=== PATIENT | female | born 1940 | race Caucasian/White ===

== ENCOUNTER 2016-08-20 12:52 | Emergency (ER) | payer MEDICARE ==
[~2016-08-20] VITALS: Ht 165.1 cm; Wt 87.7 kg
[~2016-08-20 12:52] MED LIST: AMBIEN 5MG TABLE5 MG PO; CARDIZEM CD 18180 MG PO; DIOVAN320 MG PO; GLUCOPHAGE500 MG/TAB PO; K-TAB20; LANTUS SOLOS100 U/ML SC; LASIX 40MG TABL40 MG PO; PRAVACHOL10 MG PO
[2016-08-20 12:53] VITALS: TEMP 99.5
[2016-08-20] MEDS ORDERED: LANTUS100 U/ML SQ (13:23)
[2016-08-20] MEDS ORDERED: COZAAR 25MG25 MG/TAB PO (13:24)
[2016-08-20 14:15] LABS: BASO # 0.1 (0.0-0.2); BASO % 0.5 % (0.0-2.0); EOS # 0.1 (0.0-0.7); EOS % 0.8 % (0-4.0); GRAN # 10.5 (1.4-6.5); GRAN % 72.4 % (42.2-75.2); LYMPH # 2.7 (1.2-3.4); LYMPH % 18.7 % (20.0-51.0); MEAN CELL VOLUME 101 fl (80.0-100.0); MEAN CORPUSCULAR HGB CONC 32 g/dl (33.0-37.0); MEAN PLATELET VOLUME 10.5 fl (7.4-10.4); MONO % 6.9 % (1.7-9.3); PLATELET COUNT 268 K/mm3 (130-400); RED BLOOD COUNT 3.14 M/mm3 (4.10-5.30); REDCELL DISTRIBUTION WIDTH-CV 13.3 % (11.5-14.5); WHITE BLOOD COUNT 14.4 K/mm3 (4.8-10.8)
[2016-08-20 14:16] LABS: HEMATOCRIT 31.7 % (37.0-47.0); HEMOGLOBIN 10.2 g/dl (12.5-16.0); MEAN CORPUSCULAR HEMOGLOBIN 32 pg (27.0-31.0)
[2016-08-20 14:21] LABS: INR 1.1 (0.8-3.0); PARTIAL THROMBOPLASTIN TIME 29.9 SECONDS (26.0-37.0); PROTHROMBIN TIME 12.4 SECONDS (9.7-12.8)
[2016-08-20 14:27] LABS: ADJUSTED CALCIUM 9.8 mg/dL (8.4-10.2); ALANINE AMINOTRANSFERASE 35 U/L (9-52); ALBUMIN 4.1 gm/dL (3.5-5.0); ALKALINE PHOSPHATASE 82 U/L (50-136); ANION GAP 12 mmol/L (7-16); BILIRUBIN,TOTAL 1.2 mg/dL (0.0-1.0); BLOOD UREA NITROGEN 16 mg/dL (7-17); C-REACTIVE PROTEIN 5.3 mg/dL (0.0-0.9); CALCIUM 9.9 mg/dL (8.4-10.2); CARBON DIOXIDE 26 mmol/L (22-30); CHLORIDE 98 mmol/L (98-107); CREATININE, serum 0.94 mg/dL (0.52-1.25); GLUCOSE 209 mg/dL (74-106); LIPASE 72 U/L (23-300); POTASSIUM 4.2 mmol/L (3.4-5.0); SODIUM 136 mmol/L (137-145); TOTAL PROTEIN 7.2 gm/dL (6.4-8.2)
[2016-08-20 14:36] LABS: TROPONIN-I < 0.012 ng/mL (0.000-0.034)
[2016-08-20 14:51] LABS: PH 5 (5-8); SQUAMOUS EPITHELIAL 0-2 /hpf; URINE APPEARANCE Hazy; URINE BACTERIA Many /hpf; URINE BILIRUBIN Negative (NEGATIVE); URINE BLOOD Negative (NEGATIVE); URINE COLOR Yellow; URINE GLUCOSE 2+ (NEGATIVE); URINE KETONE Negative (NEGATIVE); URINE UROBILINOGEN Negative (NEGATIVE)
[2016-08-20] MEDS ORDERED: FLAGYL500 MG PO (15:57)
[2016-08-20] MEDS ORDERED: CIPRO 500MG TA500 MG PO (15:57)
[2016-08-20] MEDS ORDERED: ZOFRAN 4MG T4 MG/TAB PO (15:57)
[2016-08-20] MEDS ORDERED: NORCO 325 MG-51 TAB PO (15:57)
[2016-08-20 16:20] VITALS: BP 142/90; PULSE 90
== END 2016-08-20 16:20 | disposition home or self-care (01) ==
LOC: COL.ER 12:52
PROVIDERS: Emergency Medicine
DX: K57.32 Diverticulitis of large intestine without perforation or abscess without bleeding (principal); E11.9 Type 2 diabetes mellitus without complications; I10 Essential (primary) hypertension; Z79.84 Long term (current) use of oral hypoglycemic drugs
CPT/HCPCS: J7030; Q9967

== ENCOUNTER 2018-09-01 12:40 | Emergency (ER) | payer MEDICARE ==
[~2018-09-01] VITALS: Ht 165.1 cm; Wt 81.8 kg
[~2018-09-01 12:40] MED LIST changes: +CIPRO 500MG TA500 MG PO; +COZAAR 25MG25 MG/TAB PO; +FLAGYL500 MG PO; +LANTUS100 U/ML SQ; +NORCO 325 MG-51 TAB PO; +ZOFRAN 4MG T4 MG/TAB PO
[2018-09-01 12:45] VITALS: TEMP 98
[2018-09-01] MEDS ORDERED: DOXYCYCLINE 10100 MG PO ×2 (13:02→13:32)
[2018-09-01] MEDS ORDERED: PREDNISONE20 MG PO (13:32)
[2018-09-01 14:14] VITALS: BP 160/84; PULSE 87
== END 2018-09-01 14:16 | disposition home or self-care (01) ==
LOC: COL.ER 12:40
DX: J20.9 Acute bronchitis, unspecified (principal); I10 Essential (primary) hypertension; E11.9 Type 2 diabetes mellitus without complications; Z95.9 Presence of cardiac and vascular implant and graft, unspecified; Z79.4 Long term (current) use of insulin

== ENCOUNTER → 2020-10-17 | Outpatient (CLI) | payer MEDICARE ==
[~2020-10-17] MED LIST changes: +ASPI325T6 PO; +B-121000 MCG PO; +BLUE-EMU LIDOC1 EACH TP; +COLCRYS0.6 MG PO; +DOXYCYCLINE 10100 MG PO; +DUO-KAPS1 CAP PO; +FERROUS SU325 MG/TAB PO; +FLEXERIL 1010 MG/TAB PO; +FOLIC ACID 11 MG/TA1 PO; +GLUMETZA1000 MG PO; +INDOCIN 25MG CA25 MG; +INDOCIN 25MG CA25 MG PO; +ONE-A-DAY ESSE1 EACH PO; +OSCAL 500 TAB500 MG PO; +PREDNISONE10 MG PO; +PREDNISONE20 MG PO; +RESTORIL30 MG PO; +ROXICODONE 55 MG/TAB PO; +SEPTRA DS 8001 TAB PO; +TOPROL XL 25MG25 MG PO; +TYLENOL 325MG325 MG PO; +VALIUM 5MG T5 MG/TAB PO; +VITAMIN C500 MG PO; +VOLTAREN GEL 1%1 TU TP; +ZYLOPRIM 100MG100 MG PO
== END ==
LOC: COL.RAD 15:33
DX: M43.8X4 Other specified deforming dorsopathies, thoracic region (principal); R06.02 Shortness of breath; M54.2 Cervicalgia

== ENCOUNTER 2020-10-20 03:22 | Inpatient (IN) | payer MEDICARE ==
[2020-10-20] VITALS (12 sets, daily range): BP systolic 110–161; BP diastolic 62–98; PULSE 83–107; TEMP 97.8–98.6
[~2020-10-20] VITALS: Ht 165.1 cm; Wt 82.7 kg
[~2020-10-20 03:22] MED LIST changes: -ASPI325T6 PO; -B-121000 MCG PO; -BLUE-EMU LIDOC1 EACH TP; -COLCRYS0.6 MG PO; -DUO-KAPS1 CAP PO; -FERROUS SU325 MG/TAB PO; -FLEXERIL 1010 MG/TAB PO; -FOLIC ACID 11 MG/TA1 PO; -GLUMETZA1000 MG PO; -INDOCIN 25MG CA25 MG; -INDOCIN 25MG CA25 MG PO; -ONE-A-DAY ESSE1 EACH PO; -OSCAL 500 TAB500 MG PO; -PREDNISONE10 MG PO; -RESTORIL30 MG PO; -ROXICODONE 55 MG/TAB PO; -SEPTRA DS 8001 TAB PO; -TOPROL XL 25MG25 MG PO; -TYLENOL 325MG325 MG PO; -VALIUM 5MG T5 MG/TAB PO; -VITAMIN C500 MG PO; -VOLTAREN GEL 1%1 TU TP; -ZYLOPRIM 100MG100 MG PO
[2020-10-20 04:04] LABS: MEAN CELL VOLUME 109 fl (80.0-100.0); MEAN CORPUSCULAR HGB CONC 31 g/dl (33.0-37.0); MEAN PLATELET VOLUME 9.1 fl (7.4-10.4); PLATELET COUNT 359 K/mm3 (130-400); RED BLOOD COUNT 2.95 M/mm3 (4.10-5.30); REDCELL DISTRIBUTION WIDTH-CV 13.7 % (11.5-14.5)
[2020-10-20 04:07] LABS: HEMATOCRIT 32.2 % (37.0-47.0); HEMOGLOBIN 9.9 g/dl (12.5-16.0); MEAN CORPUSCULAR HEMOGLOBIN 34 pg (27.0-31.0)
[2020-10-20 04:14] LABS: ALANINE AMINOTRANSFERASE 16 U/L (4-34); ALBUMIN 3.6 gm/dL (3.5-5.0); ALKALINE PHOSPHATASE 100 U/L (50-136); ANION GAP 13 mmol/L (7-16); AST,SGOT 24 U/L (15-37); BILIRUBIN,TOTAL 0.4 mg/dL (0.0-1.0); BLOOD UREA NITROGEN 31 mg/dL (7-17); CALCIUM 9.2 mg/dL (8.4-10.2); CARBON DIOXIDE 26 mmol/L (22-30); CHLORIDE 101 mmol/L (98-107); CREATININE, serum 1.51 (0.52-1.25); GLUCOSE 89 mg/dL (74-106); POTASSIUM 3.7 mmol/L (3.4-5.0); SODIUM 140 mmol/L (137-145); TOTAL PROTEIN 6.8 gm/dL (6.4-8.2)
[2020-10-20 04:20] LABS: EOSINOPHIL 4 % (0-4); HYPOCHROMIA 3+; LYMPHOCYTE 21 % (20.0-51.0); NEUTROPHILS 69 % (42.0-75.2); PLATELET ESTIMATE NORMAL (NORMAL)
[2020-10-20 04:26] LABS: TROPONIN-I < 0.012 ng/mL (0.000-0.035)
--- NOTE | 2020-10-20 07:20 | NUR ---
ORTHO PA ROUNDING, IF PATIENT CLEARED SURGERY WILL BE SCHEDULED FOR LATER TODAY. SEE ORDERS.
--- NOTE | 2020-10-20 08:00 | NUR ---
PATIENT IS A&O. VSS. C/O PAIN IN RLE. GAVE PRN IV MORPHINE PER ORDERS. RIGHT HIP FX SURGERICAL REPAIR PENDING HOSPITALIST CLEARANCE. SURGERY WILL POSSIBLY HAPPEN LATER TODAY. NPO. AM BS IS 76. IV FLUIDS ORDERED AND ARE BEING HUNG BY STUDENT NURSE. SEE STUDENT CHARTING. CONSENT ON CHART AND OBTAINED BY ORTHO P.A. EARLY THIS AM. RLE IS STRAIGHT, NOT SHORTENED OR EXTERNALLY ROTATED. TEDS TO LLE. SCD'S TO BLE. POSITIVE PEDAL PLUSES. LUNA TO DD WITH MOD AMOUNTS OF CLEAR YELLOW URINE NOTED. HEAD TO TOE ASSESSMENT COMPLETE. CALL LIGHT IN REACH. NO OTHER NEEDS AT THIS TIME.
--- NOTE | 2020-10-20 08:30 | NUR ---
CONTACTED PCP FOR BASELINE CREATININE & HGB. AWAITING FAX
[2020-10-20 08:34] LABS: PROTHROMBIN TIME 11.7 SECONDS (9.7-12.8)
[2020-10-20 08:47] LABS: PRE ALBUMIN 15.7 mg/dL (17.6-36.0)
--- NOTE | 2020-10-20 09:50 | NUR ---
HOSPITALIST TEAM ROUNDING, SEE ORDERS.
[2020-10-20 10:02] LABS: COLLECTION METHOD CLEAN CATCH
[2020-10-20 10:35] LABS: AMORPHOUS CRYSTAL Present /uL; MUCOUS Present /lpf; PH 5 (5-8); SQUAMOUS EPITHELIAL None Seen /hpf; URINE APPEARANCE Hazy; URINE BACTERIA Occasional /hpf; URINE BILIRUBIN Negative (NEGATIVE); URINE BLOOD Negative (NEGATIVE); URINE COLOR Yellow; URINE GLUCOSE Negative (NEGATIVE); URINE KETONE Negative (NEGATIVE); URINE LEUKOCYTE ESTERASE Negative (NEGATIVE); URINE NITRATE Positive (NEGATIVE); URINE PROTEIN(semi-quant) 1+ (NEGATIVE); URINE RBC 0-2 /hpf; URINE UROBILINOGEN Negative (NEGATIVE)
--- NOTE | 2020-10-20 11:05 | NUR ---
Initial visit; Patient thanked Customer Contact Representative for looking in on her and offering God's blessings and keeping her in her prayers.
--- NOTE | 2020-10-20 13:50 | NUR ---
AT BEDSIDE. PATIENT SCHEDULED TO GO DOWN TO THE OR AROUND 1530 TODAY.
--- NOTE | 2020-10-20 14:21 | NUR ---
Route Salesman And Driver attended clinical rounds with the team. Patient to have hip surgery, possibly this afternoon. SW met with patient and patient's , Lionel (ph#[phone]) to discuss discharge planning. Patient lives in [place] in a condo with her Lionel and daughter Leatha. Patient sees Dr. Farfan for primary care. Patient states she does use any DME but has a walker at home. Lionel states that patient should be using the walker, but doesn't. Patient advised that she has had some difficulty getting in and out of her bathtub and Lionel added that patient has had trouble getting up from the couch. Patient states they plan to have their bathroom remodeled to be more accomodating. Patient advised she has DPOA-HC and her daughter will bring it by later. SW then reviewed discharge plan with patient. SW advised that based on patient's diagnosis and surgery, it is likely she will need rehab before returning home. Patient advised she lives on one level and has family support, but also verbalized understanding that rehab may be recommended. Patient was open to having referrals sent for rehab. SW reviewed options including [facility] and local SNFs. Patient's preferences are 1) [facility] and 2) [facility]. SW contacted both facilities and faxed referrals. Discharge Plan: Referrals sent to SNF. Awaiting PT/OT eval.
--- NOTE | 2020-10-20 14:50 | NUR ---
NOTED PATIENT'S PRE-OP BS AT 64. NPO FOR SURGERY TODAY. NOTIFIED HOSPITALIST, SEE ORDERS.
--- NOTE | 2020-10-20 15:23 | NUR ---
Patient's brought in copy of DPOA-HC and copy was placed on patient's chart.
--- NOTE | 2020-10-20 15:40 | NUR ---
PATIENT GOING DOWN TO OR VIA BED. CONSENT ON CHART. IV FLUIDS WITH D5W PIGGYBACKED VIA GRAVITY. PATIENT OFF FLOOR.
--- NOTE | 2020-10-20 19:15 | NUR ---
Pt. returned from PACU. Pt. is A&OX3, assessment complete. IV to lt. hand patent, IV fluids infusing per orders. Dressing to rt. hip CDI. Pt. reports pain at a 2 on pain scale at this time. Pt. denies further needs, call light within reach.
[2020-10-21] VITALS (7 sets, daily range): BP systolic 102–150; BP diastolic 59–85; PULSE 91–99; TEMP 98–98.9
[2020-10-21 07:16] LABS: BASO % 0.3 % (0.0-2.0); GRAN # 7.5 (1.4-6.5); GRAN % 84.5 % (42.2-75.2); LYMPH # 0.9 (1.2-3.4); LYMPH % 10.4 % (20.0-51.0); MEAN CELL VOLUME 109 fl (80.0-100.0); MEAN CORPUSCULAR HGB CONC 31 g/dl (33.0-37.0); MEAN PLATELET VOLUME 9.8 fl (7.4-10.4); MONO # 0.4 (0.1-0.6); MONO % 3.9 % (1.7-9.3); PLATELET COUNT 269 K/mm3 (130-400); RED BLOOD COUNT 2.19 M/mm3 (4.10-5.30); REDCELL DISTRIBUTION WIDTH-CV 13.8 % (11.5-14.5)
[2020-10-21 07:29] LABS: CALCIUM 8.2 mg/dL (8.4-10.2); CREATININE, serum 1.26 (0.52-1.25); POTASSIUM 4.8 mmol/L (3.4-5.0)
[2020-10-21 07:34] LABS: HEMATOCRIT 23.9 % (37.0-47.0); HEMOGLOBIN 7.5 g/dl (12.5-16.0); MEAN CORPUSCULAR HEMOGLOBIN 34 pg (27.0-31.0)
--- NOTE | 2020-10-21 08:00 | NUR ---
PATIENT IS A&O. VSS. C/O PAIN IN RLE. GAVE PRN NORCO, TWO TABS PER ORDERS. RIGHT HIP DRESSING IS CD&I WITH ICE PACK INPLACE. TEDS & SCD'S TO BLE. POSITIVE PEDAL PULSES TO BLE. LUNA TO DD WITH MOD AMOUNTS OF CLEAR YELLOW URINE NOTED. IV FLUIDS INFUSING INTO LEFT HAND IV VIA PUMP. STUDENT NURSE WORKING WITH PATIENT TODAY, SEE STUDENT CHARTING. PT/OT CONSULTED. HEAD TO TOE ASSESSMENT COMPLETE. CALL LIGHT IN REACH. NO OTHER NEEDS AT THIS TIME.
[2020-10-21] MEDS ORDERED: VITAMIN C500 MG PO (09:52)
[2020-10-21] MEDS ORDERED: RESTORIL30 MG PO (10:02)
[2020-10-21] MEDS ORDERED: FLEXERIL 1010 MG/TAB PO (10:02)
--- NOTE | 2020-10-21 15:13 | NUR ---
General Road Production Manager faxed clinical updates to [facility]. Imani from [facility] advised that they can accept referral. SW reviewed patient's PT note which advised patient would be a good candidate for Inpatient Rehab. SW followed up with patient to review [facility] as another post acute rehab option. Patient is interested in IPR so SW contacted Pilar, [facility] Director to give referral. NURA also advised patient that [facility] can accept. Pilar advised they may be able to accept over the weekend and that patient was going to talk about her options with her .
--- NOTE | 2020-10-21 15:50 | NUR ---
Pilar, [facility] Director has submitted for authorization. SW also faxed in information to [facility] for SNF authorization as a second preference.
[2020-10-21 18:05] LABS: HEMATOCRIT 23.7 % (37.0-47.0); HEMOGLOBIN 7.2 g/dl (12.5-16.0)
--- NOTE | 2020-10-21 20:10 | NUR ---
PT IN BED. IS ALERT AND ORIENTED X3. HAS SL TO LEFT HAND, NO REDNESS OR SWELLING. TAKES HS MEDS AT THIS TIME. HAS BULKY DRSG TO LEFT HIP. PLACED SCDS ON FOR THE NIGHT. LUNA WITH YELLOW URINE.
--- NOTE | 2020-10-21 22:19 | NUR ---
MEDICATED WITH NORCO 2 TABS PO AT THIS TIME.
[2020-10-22 04:07] VITALS: BP 144/72; PULSE 90; TEMP 98
--- NOTE | 2020-10-22 06:22 | NUR ---
DR TYLER IN TO SEE PT. CHANGES RT HIP DRSG TO AN AQUACEL. TAKES NORCO 2 TABS PO AT THIS TIME FOR PAIN TO RIGHT HIP AND RIBS.
[2020-10-22 07:27] LABS: BASO % 0.4 % (0.0-2.0); EOS # 0.3 (0.0-0.7); EOS % 3.4 % (0-4.0); GRAN # 5.8 (1.4-6.5); LYMPH # 1.8 (1.2-3.4); MEAN CORPUSCULAR HGB CONC 30 g/dl (33.0-37.0); MEAN PLATELET VOLUME 9.6 fl (7.4-10.4); MONO # 0.5 (0.1-0.6); MONO % 6.4 % (1.7-9.3); PLATELET COUNT 253 K/mm3 (130-400); RED BLOOD COUNT 2.05 M/mm3 (4.10-5.30)
[2020-10-22 07:28] LABS: HEMATOCRIT 23.3 % (37.0-47.0); MEAN CELL VOLUME 114 fl (80.0-100.0); MEAN CORPUSCULAR HEMOGLOBIN 34 pg (27.0-31.0)
[2020-10-22 07:31] LABS: CALCIUM 8.3 mg/dL (8.4-10.2); CREATININE, serum 1.36 (0.52-1.25); POTASSIUM 3.9 mmol/L (3.4-5.0)
--- NOTE | 2020-10-22 08:00 | NUR ---
Patient in bed resting. Alert and oriented x 3. Assessment complete. States mild pain to ribs. Aquacell to right hip is CDI. Rocky hose and SCDs to BLE. Denies further needs at this time.
[2020-10-22 08:58] VITALS: BP 139/58; PULSE 72; TEMP 99.6
--- NOTE | 2020-10-22 09:30 | NUR ---
Coffey discontinued per orders, patient tolerated well, pericare provided.
[2020-10-22] MEDS ORDERED: TOPROL XL 25MG25 MG PO (09:34)
--- NOTE | 2020-10-22 11:25 | NUR ---
Patient called out states she is having 8/10 generalized pain, medications given per orders.
[2020-10-22 13:04] VITALS: BP 161/67; PULSE 97; TEMP 98.1
--- NOTE | 2020-10-22 13:43 | NUR ---
Patient back to bed with x 2 assist and walker.
[2020-10-22 15:22] VITALS: BP 151/72; PULSE 94; TEMP 98.5
[2020-10-22 16:03] LABS: HEMATOCRIT 22.9 % (37.0-47.0)
--- NOTE | 2020-10-22 17:16 | NUR ---
Notified Stacie MONTOYA, patient up to comode, unable to void. Bladder scanned at 200 ml. Will recheck, patient denies feeling the need to void.
--- NOTE | 2020-10-22 19:00 | NUR ---
Patient doing well throughout the day, reported off to rubber and pounder
--- NOTE | 2020-10-22 20:11 | NUR ---
MEDICATED WITH NORCO 2 TABS PO FOR RIB/CHEST DISCOMFORT. IS ALERT AND ORIENTED X4. HAS NOT VOIDED SINCE CATHETER REMOVED THIS AM.
[2020-10-22 20:46] VITALS: BP 161/73; PULSE 94; TEMP 98.2
--- NOTE | 2020-10-22 21:00 | NUR ---
ASSISTED TO BSC WITH 2, GAIT BELT AND WALKER. ABLE TO URINATE 150CC AT THIS TIME. BACK TO BED WITH MODERATE ASSIST. HAS SL TO LEFT HAND. REMOVED LIDODERM PATCH FROM RT RIB CAGE. WEARING OXYGEN AT 2L/OXYMASK, DYSPNEA WITH EXERTION. HS MEDS GIVEN.
[2020-10-22 23:54] VITALS: BP 142/62; PULSE 95; TEMP 99.1
--- NOTE | 2020-10-23 03:14 | NUR ---
PT USING BSC WITH 2 ASSIST, VOIDING WITHOUT PROBLEM.
[2020-10-23 04:21] VITALS: BP 136/71; PULSE 84; TEMP 98.6
--- NOTE | 2020-10-23 06:03 | NUR ---
NORCO 5/325MG 2 TABS PO GIVEN FOR RT RIB PAIN.
[2020-10-23 07:18] LABS: BASO % 0.4 % (0.0-2.0); EOS # 0.4 (0.0-0.7); EOS % 4.3 % (0-4.0); LYMPH % 21.4 % (20.0-51.0); MEAN CORPUSCULAR HGB CONC 32 g/dl (33.0-37.0); MEAN PLATELET VOLUME 9.7 fl (7.4-10.4); MONO # 0.6 (0.1-0.6); MONO % 6.8 % (1.7-9.3); PLATELET COUNT 246 K/mm3 (130-400); RED BLOOD COUNT 2.14 M/mm3 (4.10-5.30); REDCELL DISTRIBUTION WIDTH-CV 13.8 % (11.5-14.5)
[2020-10-23 07:25] LABS: HEMOGLOBIN 7.3 g/dl (12.5-16.0); MEAN CELL VOLUME 108 fl (80.0-100.0); MEAN CORPUSCULAR HEMOGLOBIN 34 pg (27.0-31.0)
[2020-10-23 07:31] LABS: CALCIUM 8.8 mg/dL (8.4-10.2); CREATININE, serum 1.28 (0.52-1.25); POTASSIUM 4.5 mmol/L (3.4-5.0)
[2020-10-23 07:42] VITALS: BP 152/81; PULSE 88; TEMP 97.8
--- NOTE | 2020-10-23 08:50 | NUR ---
Pt sitting up in the chair. Therapy helped her. She had pain medication prior to gettin up. Stated the pain was up to a 5/10 with transfer. Pt reports she has more right sided rib pain than she does hip pain. She has had breakfast. Lidocain patch applied to right ribs. Pt denies any needs, will continue to monitor
[2020-10-23 12:30] VITALS: BP 143/81; PULSE 95; TEMP 97.6
--- NOTE | 2020-10-23 14:43 | NUR ---
Pt back up sitting in the chair. She sat up most of the morning, got back to bed and is now back up in the chair. Having rib pain more than her right hip. PRN pain medication given for 02/14. No other needs, will continue to monitor
[2020-10-23 16:27] VITALS: BP 149/79; PULSE 95; TEMP 97.6
--- NOTE | 2020-10-23 19:17 | NUR ---
Pt continued to do well throughout the day. Mepilex dressing applied to right side of bottom during morning assessment. Bottom is not red, but there are 2 shiny areas about pea sized noted during morning assessment. Pain has been controlled with oral pain medication
[2020-10-23 19:58] VITALS: BP 171/90; PULSE 94; TEMP 97.6
--- NOTE | 2020-10-23 20:09 | NUR ---
ASSISTED TO BSC THEN BED WITH 1 ASSIST, GAIT BELT AND WALKER. TAKES HS MEDS INCLUDING OXYCODONE 10MG PO FOR RIB PAIN. HAS SL TO LEFT HAND, FLUSHED AT THIS TIME. ICE PACK PLACED TO RT HIP, AQUACEL DRSG INTACT. SCDS ON BILATERAL LOWER LEGS. HAS EDEMA TO BOTH LEGS. WEARING OXYGEN AT 2L/OXYMASK. REPORTS DYSPNEA WITH EXERTION, HAS NOT BEEN GETTING HER LASIX.
[2020-10-24] VITALS (11 sets, daily range): BP systolic 90–162; BP diastolic 51–88; PULSE 81–92; TEMP 97.7–98.6
[2020-10-24 07:48] LABS: CALCIUM 9.1 mg/dL (8.4-10.2); CREATININE, serum 1.54 (0.52-1.25); POTASSIUM 5.1 mmol/L (3.4-5.0)
[2020-10-24 07:50] LABS: BASO % 0.3 % (0.0-2.0); EOS # 0.5 (0.0-0.7); EOS % 5.5 % (0-4.0); GRAN # 6.1 (1.4-6.5); GRAN % 67.1 % (42.2-75.2); LYMPH # 1.8 (1.2-3.4); LYMPH % 19.5 % (20.0-51.0); MEAN CELL VOLUME 110 fl (80.0-100.0); MEAN CORPUSCULAR HGB CONC 31 g/dl (33.0-37.0); MEAN PLATELET VOLUME 9.8 fl (7.4-10.4); MONO # 0.6 (0.1-0.6); MONO % 6.6 % (1.7-9.3); PLATELET COUNT 250 K/mm3 (130-400); RED BLOOD COUNT 2.02 M/mm3 (4.10-5.30); REDCELL DISTRIBUTION WIDTH-CV 13.8 % (11.5-14.5)
[2020-10-24 08:09] LABS: HEMATOCRIT 22.2 % (37.0-47.0); HEMOGLOBIN 6.8 g/dl (12.5-16.0); MEAN CORPUSCULAR HEMOGLOBIN 34 pg (27.0-31.0)
--- NOTE | 2020-10-24 08:31 | NUR ---
Contacted hospitalist about H&H
--- NOTE | 2020-10-24 11:18 | NUR ---
Patient up to BSC with x 2 assist and walker. Denies further needs at this time.
--- NOTE | 2020-10-24 13:02 | NUR ---
First visit from the dental services director. No needs right now.
--- NOTE | 2020-10-24 14:00 | NUR ---
Patient to discharge to [place] [facility] today. SW contacted [facility] and canceled authorization request for SNF.
--- NOTE | 2020-10-24 14:13 | NUR ---
Educated patient on leaving oxygen on, use of IS and CDB.
--- NOTE | 2020-10-24 15:00 | NUR ---
Patient doing well today, up to recliner for breakfast and lunch. Aquacell to right hip is CDI. Abrasion to elbow with bandaid noted. Abrasion to buttock with foam dressing. Denies further needs at this time. Reported off to [facility].
[2020-10-24] MEDS ORDERED: SEPTRA DS 8001 TAB PO (15:13)
[2020-10-24] MEDS ORDERED: ROXICODONE 55 MG/TAB PO (15:14)
[2020-10-24] MEDS ORDERED: ASPI325T6 PO (15:14)
[2020-10-24] MEDS ORDERED: NORCO 325 MG-51 TAB PO (15:14)
[2020-10-24] MEDS ORDERED: TYLENOL 325MG325 MG PO (15:15)
[2020-10-24] MEDS ORDERED: OSCAL 500 TAB500 MG PO (15:15)
[2020-10-24] MEDS ORDERED: DUO-KAPS1 CAP PO (15:16)
[2020-10-24] MEDS ORDERED: BLUE-EMU LIDOC1 EACH TP (15:16)
[2020-10-24] MEDS ORDERED: B-121000 MCG PO (15:16)
--- NOTE | 2020-10-24 17:49 | NUR ---
Report received from [facility]. pT in bed resting, needs 20G IV started one to RFA after 3 attemtps. Pt received 1 unit of PRBCs after starting IV. REmained with pt for first 15 minutes of transfusion, pt denies any s/sx of a transfusion reaction. Tolerated well. Deneis needs. Will prep for discharge to [facility].
== END 2020-10-24 18:00 | DRG 521 ==
LOC: COL.ER 03:22 → SURG 04:47 → COL.ER 04:47 → SURG 10-24 17:40
PROVIDERS: Emergency Medicine; Orthopaedic Surgery; Orthopaedic Surgery Sports Medicine; Physician Assistant; ADMIT Student in an Organized Health Care Education/Training Program
PROC: 0SRR0J9 Replacement of Right Hip Joint, Femoral Surface with Synthetic Substitute, Cemented, Open Approach (ICD-10-PCS; principal; 2020-10-20 15:30)
DX: S72.031A Displaced midcervical fracture of right femur, initial encounter for closed fracture (principal); J96.01 Acute respiratory failure with hypoxia; S22.43XA Multiple fractures of ribs, bilateral, initial encounter for closed fracture; S22.069A Unspecified fracture of T7-T8 vertebra, initial encounter for closed fracture; N17.9 Acute kidney failure, unspecified; N39.0 Urinary tract infection, site not specified; E11.9 Type 2 diabetes mellitus without complications; I10 Essential (primary) hypertension; E78.5 Hyperlipidemia, unspecified; Z66 Do not resuscitate; N18.9 Chronic kidney disease, unspecified; D53.9 Nutritional anemia, unspecified; D72.829 Elevated white blood cell count, unspecified; I12.9 Hypertensive chronic kidney disease with stage 1 through stage 4 chronic kidney disease, or unspecified chronic kidney disease; Z20.822 Contact with and (suspected) exposure to COVID-19; Z79.4 Long term (current) use of insulin; Z87.891 Personal history of nicotine dependence; W19.XXXA Unspecified fall, initial encounter
CPT/HCPCS: OP; 99223-AI; 99232-AI; 99233-AI; 99239; A9284; C1776; J0690; J0696; J1100; J1815; J2270; J2405; J2704; J3010; J7030; J7070; J7120; P9016

== ENCOUNTER 2020-10-24 10:47 | Inpatient (IN) | payer MEDICARE ==
[~2020-10-24] VITALS: Ht 165.1 cm; Wt 77.9 kg
[~2020-10-24 10:47] MED LIST changes: +FLEXERIL 1010 MG/TAB PO; +RESTORIL30 MG PO; +TOPROL XL 25MG25 MG PO; +VITAMIN C500 MG PO
[2020-10-24] MEDS ORDERED: SEPTRA DS 8001 TAB PO (15:13)
[2020-10-24] MEDS ORDERED: ROXICODONE 55 MG/TAB PO (15:14)
[2020-10-24] MEDS ORDERED: ASPI325T6 PO (15:14)
[2020-10-24] MEDS ORDERED: NORCO 325 MG-51 TAB PO (15:14)
[2020-10-24] MEDS ORDERED: OSCAL 500 TAB500 MG PO (15:15)
[2020-10-24] MEDS ORDERED: TYLENOL 325MG325 MG PO (15:15)
[2020-10-24] MEDS ORDERED: BLUE-EMU LIDOC1 EACH TP (15:16)
[2020-10-24] MEDS ORDERED: DUO-KAPS1 CAP PO (15:16)
[2020-10-24] MEDS ORDERED: B-121000 MCG PO (15:16)
--- NOTE | 2020-10-24 19:19 | NUR ---
Report given to Chari, nightshift nurse who will resume care. pT brought to this room from surgical with all belongings. Daugther in room at bedside assisting with needs. Chari to resume care.
--- NOTE | 2020-10-24 21:57 | NUR ---
1999-ASSESSMENT COMPLETE. PT IS A NEW IRP ADMIT. ORDERS REVIEWED/POC DISCUSSED. PT RATING PAIN 3/10 W NO MOVEMENT TO RT HIP. 6/10 RIB PAIN ON BOTH SIDES. PM MEDS REVIEWED AND GIVEN. ICE WATER REFILL. CALL LIGHT W IN REACH. RT HIP AQUACELL C/D/I. UNPACKED ROOM AND GETTING SETTLE. DAUGHTER AT BEDSIDE HELPING. NO BM SINCE PRIOR TO SURGERY PER PT. COLACE GIVEN. ABD SOFT, W ACTIVE BOWEL SOUNDS. PASSING GAS. NEEDS MET.
--- NOTE | 2020-10-25 04:01 | NUR ---
Pt given incentive spirometer during hospitalization. Completing intervention.
[2020-10-25 04:42] VITALS: BP 101/53; PULSE 61; TEMP 98.4
--- NOTE | 2020-10-25 05:53 | NUR ---
RESTED THROUGH OUT THE NIGHT WITHOUT INCIDENT. NEEDS MET.
[2020-10-25 07:29] LABS: BASO % 0.5 % (0.0-2.0); EOS # 0.5 (0.0-0.7); EOS % 6.1 % (0-4.0); GRAN # 5.4 (1.4-6.5); GRAN % 66.9 % (42.2-75.2); LYMPH # 1.5 (1.2-3.4); LYMPH % 18.7 % (20.0-51.0); MEAN CORPUSCULAR HGB CONC 31 g/dl (33.0-37.0); MEAN PLATELET VOLUME 9.7 fl (7.4-10.4); MONO # 0.6 (0.1-0.6); MONO % 6.8 % (1.7-9.3); PLATELET COUNT 248 K/mm3 (130-400); RED BLOOD COUNT 2.38 M/mm3 (4.10-5.30); REDCELL DISTRIBUTION WIDTH-CV 17.2 % (11.5-14.5)
[2020-10-25 07:38] LABS: HEMATOCRIT 24.2 % (37.0-47.0); HEMOGLOBIN 7.5 g/dl (12.5-16.0); MEAN CELL VOLUME 102 fl (80.0-100.0); MEAN CORPUSCULAR HEMOGLOBIN 32 pg (27.0-31.0)
--- NOTE | 2020-10-25 09:39 | NUR ---
PT DENIED VIERA PRIOR TO GETTING OUT OF BED THIS AM. ESTEBAN 10 MG WAS GIVEN PRIOR TO THERAPY. PT NEEDED MOD A TO SIT ON SIDE OF BED THIS AM.
[2020-10-25 09:50] VITALS: BP 146/72
--- NOTE | 2020-10-25 13:48 | NUR ---
Plan to return home wih and home health supports. SW met with patient about her care. Patient reports that her Lionel is not support to care and sergio DTR Leatha works director multimedia. Patient reports that she uses walker and has oxygen at night. Patient reports difficulty during the day breathing and while walking. Suggested RT assessment to nurse when patient is moving better. Patient shares that her pcp is Dr. James Sanchez and preferred RX obtained at [facility] without difficulty. Patient indicated that she was independent prior to falling. Patient did not have preference of home health agency. WIll need to sent home health referral closer to [place].
[2020-10-25 15:38] VITALS: BP 139/72; PULSE 82; TEMP 98.4
--- NOTE | 2020-10-25 18:20 | NUR ---
PT C/O 02/14 PAIN TO RT SIDE OF RIBS AND RT HIP. RECEIVED PRN ESTEBAN 10 MG WITH APAP TWICE TODAY. REFUSED ICE THERAPY TO HIP OR RIBS. S2 TO RT SIDE OF BUTTOCKS NOTED AND MEPILEX REPLACED. AQUACELL TO RT HIP IS CDI. PT CONCERNED ABOUT OXYGEN SATURATIONS BUT HAS MAINTAINED WELL ABOVE 90% DURING THERAPIES AND AMBULATION TODAY. PT EXHIBITS ANXIETY ABOUT MINOR DETAILS OF HER CARE, HAS BEEN REASSURED AND ENCOURAGED TO FOCUS ON MANAGING PAIN AND INCREASING MOBILITY.
--- NOTE | 2020-10-25 21:53 | NUR ---
2030- ALERT AND OX4 . UP TO COMMODE TO ATTEMPT BM. PASSING GAS. REPORTS PAIN TO RT HIP, DSG C/D/I. RECENT MEDICATED. PM MEDS GIVEN. MELITON HOSE OFF FOR THE NIGHT. SCD ON. CALL LIGHT WI REACH. BED IN LOW POSITION. POC DISCUSSED. NEEDS MET.
[2020-10-26 04:14] VITALS: BP 166/78; PULSE 84; TEMP 97.7
--- NOTE | 2020-10-26 05:30 | NUR ---
rested throughout the night without incident. needs met .
[2020-10-26 07:32] LABS: HEMATOCRIT 26.6 % (37.0-47.0); HEMOGLOBIN 8.1 g/dl (12.5-16.0)
--- NOTE | 2020-10-26 08:12 | NUR ---
Patient resting in bed, call light in reach and bed alarm set. Patient reports pain of 4/10 at rest, but with exercise it goes to 8/10. Patient given prn pain meds as well as pain patch for her right upper ribs. Will continue to monitor.
--- NOTE | 2020-10-26 14:08 | NUR ---
Weight calculated for patient 114 kg - 24.6 kg (wheelchair) = 89.4 kg.
[2020-10-26 15:40] VITALS: BP 142/67; PULSE 80; TEMP 98.8
--- NOTE | 2020-10-26 16:34 | NUR ---
Change Lead met with patient and patient's to review and provide copy of team conference notes. Patient will be re-evaluated next week. NURA scheduled family meeting for 11/02/20 @1330.
--- NOTE | 2020-10-26 17:58 | NUR ---
Patient attended all therapies today. She ate only 10% of breakfast and 90% of lunch, but refused her supper. Her brought in a milk shake for her supper and she only wanted to eat her chocolate ice cream. Patient currently resting in bed, call light in reach and bed alarm set. Will continue to monitor.
--- NOTE | 2020-10-26 18:03 | NUR ---
Area to patient's left buttocks looks like it might be an excoriation, but it is open. This nurse applied xeroform to the open area and then secured it with a mepilex. Will continue to monitor.
--- NOTE | 2020-10-26 20:00 | NUR ---
PT RESTING IN BED. MOD 1 ASSIST TO BSC WITH WALKER. NEEDS ASSIST TO SITTING POSITION AND STANDING. NEEDS SAFETY CUES. PT WITH ANXIOUS AFFECT. HAD MED SF BROWN BM W/ VOID. PT REPORTS URGENCY & BURNING WITH VOID. PT TAKING SCHEDULED . RT RIB FX PAIN LEVEL 02/14. RT HIP PAIN 10/15. SEE MAR FOR PAIN MED GIVEN. PROVIDED KPAD FOR RT RIB AREA PAIN. ENC USE OF IS. REQUIRES TOILETING HYGIENE ASSIST. CALL LIGHT IN REACH. BED ALARM SET.
[2020-10-27 05:39] VITALS: BP 132/55; PULSE 64; TEMP 98
[2020-10-27 05:42] VITALS: BP 120/54; PULSE 79; TEMP 98.6
--- NOTE | 2020-10-27 06:59 | NUR ---
PT AWAKE. PROVIDED PAIN MED PRIOR TO ACTIVITY. DENIES NEED FOR TOIELT. CALL LIGHT IN REACH. BED ALARAM SET.
--- NOTE | 2020-10-27 08:05 | NUR ---
Patient resting in recliner eating breakfast at this time. Denies questions will continue to monitor.
--- NOTE | 2020-10-27 11:08 | NUR ---
Patient at Group Therapy at this time.
--- NOTE | 2020-10-27 13:23 | NUR ---
Admission QIM scores were reviewed by the team. Code of 5 chosen for eating was determined by team discussion to be the most usual performance for this patient during the assessment period. Code of 5 chosen for oral hygiene was determined by team discussion to be the most usual performance before interventions for this patient during the assessment period. Code of 1 chosen for toilet hygiene was determined by team discussion to be the most usual performance for this patient during the assessment period. Code of 88 chosen for toileting transfers was determined by team discussion to be the most usual performance for this patient during the assessment period. Code of 2 chosen for lower body dressing was determined by team discussion to be the most usual performance for this patient during the assessment period. Code of 1 chosen for putting on/taking off footwear was determined by team discussion to be the most usual performance for this patient during the assessment period. Code of 88 chosen for rolling left to right was determined by team discussion to be the most usual performance for this patient during the assessment period. Code of 2 chosen for sit to lying was determined by team discussion to be the most usual performance for this patient during the assessment period. Code of 2 chosen for lying to sitting on side of bed was determined by team discussion to be the most usual performance for this patient during the assessment period. Code of 3 for sit to stand was determined by team discussion to be the most usual performance for this patient during the assessment period. Code of 3 for chair/bed to chair transfers was determined by team discussion to be the most usual performance for this patient during the assessment period.--Pilar Garcia,
--- NOTE | 2020-10-27 13:33 | NUR ---
Patient was a two assist with putting on her karolyn hose today.
[2020-10-27 16:00] VITALS: BP 116/72; PULSE 78; TEMP 98.3
--- NOTE | 2020-10-27 19:00 | NUR ---
PT RESTING IN BED. STILL HAVING RT RIB PAIN. SEE MAR FOR FLEXARIL GIVEN. NO CHANGE IN LUNG SOUNDS. USING IS- NEEDED INSTRUCTION ON PROPER USE. ENC TCDB. MELITON HOSE ON BILAT. BED ALARM SET. CALL LIGHT IN REACH.
[2020-10-28 03:57] VITALS: BP 130/59; PULSE 99; TEMP 97.2
--- NOTE | 2020-10-28 13:44 | NUR ---
Comb Setter checked in with patient before the weekend. Patient states she is very tired and is hoping to get some rest this afternoon. Patient denies any questions or concerns at this time.
--- NOTE | 2020-10-28 14:30 | NUR ---
PT CALLED AUTO CAMP ATTENDANT LIGHT TO USE BATHROOM. THIS NURSE RESPONDED, AND THE BEDSIDE COMMODE WAS BROUGHT TO BEDSIDE B/C PT STATED SHE NEEDED TO GO BADLY AND IT WOULD TAKE TOO LONG TO WALK ALL THE WAY. PT SAT UP ON EDGE OF BED, GAIT BELT WAS FASTENED, WALKER WAS SET UP IN FRONT OF PT. PT NEEDED MOD A TO COME TO STANDING AND THEN WAS A 1 ASSIST WITH CUES TO PIVOT TO COMMODE. WHEN PT WAS DONE, SHE STOOD WITH WALKER AND GAIT BELT, PERFORMED ALL OWN HYGIENE AND CLOTHING MANAGEMENT. WE WERE PIVOT TRANSFERING TO PT'S RIGHT BACK TOWARDS BED. PT LOOKED LIKE SHE WAS GOING TO SIT DOWN AND WAS NOT CLOSE ENOUGH TO BED SO THIS NURSE TOLD PT NOT TO SIT YET, THAT SHE NEEDED TO MOVE CLOSER. PT BECAME UPSET AND TOLD THIS NURSE SHE KNEW THAT. PT ATTEMPTED TO PIVOT MORE BUT DID NOT MOVE MUCH AND THEN BEGAN TO SIT DOWN, THIS NURSE ATTEMPTED TO GET PT TO STAND BACK UP WITH GAIT BELT AND PT STATED SHE COULD NOT. THIS NURSE THEN ATTEMPTED TO PULL PT INTO BED MORE BUT COULD NOT. PT HAD RIGHT HAND ON BED AND NURSE HAD A HOLD OF GAIT BELT AND WE LOWERED HER TO THE GROUND. PT DENIED SCRAPPING OR HITTING ANYTHING ON THE WAY DOWN AND WAS GENTLY LOWERED. ASSISTANCE WAS CALLED, NUVIA LIFT WAS UTILIZED TO TRANSFER PT BACK INTO BED. VITALS WERE 139/69, 96, 20, 97% AT TIME OF FALL. PT DENIED ANY PAIN AFTER BACK IN BED, SKIN LOOKED OK. CASTRO MONTOYA WAS NOTIFIED AND IMMEDIATELY ASSESSED PT, CHARGE NURSE NOTIFIED, AND FAMILY NOTIFIED. PT HAS BEEN MODERATLY CONFUSED AND UNABLE TO FOLLOW DIRECTIONS, UNSURE HOW MUCH CONFUSION IS BASELINE AND HOW MUCH MAY BE DUE TO NARCOTICS. PT IS IN PAIN, FROM HIP FX AND FX RIBS SO BALANCING PAIN AND COGNITION IS CHALLENGING. CASTRO ORDERED MORE TOPICAL PAIN RELIEF AND WILL CONTINUE TO ENCOURAGE PT TO UTILIZE ICE OR HEAT THERAPY.
[2020-10-28 17:30] VITALS: BP 147/65; PULSE 85; TEMP 98.3
[2020-10-28 17:33] VITALS: BP 147/65
--- NOTE | 2020-10-28 19:12 | NUR ---
PT RECEIEVED LIDOCAINE PATCH TO LOWER BACK THIS EVENING. REPORTED PAIN 3/10 THE REST OF THE AFTERNOON AND NO MORE PRN PAIN MEDICATIONS GIVEN. PT NEEDED ASSISTANCE OF TWO TO GET OUT OF RECLINER THIS EVENING.
--- NOTE | 2020-10-28 19:28 | NUR ---
RECEIVED CHANGE OF SHIFT REPORT FROM DAY SHIFT NURSE.
[2020-10-29 05:49] VITALS: BP 120/58; PULSE 79; TEMP 98
--- NOTE | 2020-10-29 07:18 | NUR ---
CHANGE OF SHIFT REPORT GIVEN TO DAY SHIFT NURSE, EMILI ARECHIGA.
--- NOTE | 2020-10-29 07:32 | NUR ---
Patient resting in bed, call light in reach and bed alarm set.
--- NOTE | 2020-10-29 10:08 | NUR ---
Patient ate only 40% of her breakfast this morning. She is currently working with therapy.
--- NOTE | 2020-10-29 10:39 | NUR ---
Patient just now returning to her room with therapy.
--- NOTE | 2020-10-29 13:15 | NUR ---
Patient was a one CGA with ambulation from recliner to bed. This nurse needed to help patient with putting both legs in bed so was max assist. Patient tolerated meal well, reporting that she like the salad that was served today. Patient currently resting in bed, call light in reach and bed alarm set.
--- NOTE | 2020-10-29 15:18 | NUR ---
Patient was given colace this morning and she drank prune juice. She was worried about having another hard stool. Patient just had an incontinent semi-loose brown BM through pants and underwear. Patient was cleaned up and placed clean disposable brief on and replaced pants. Patient had her thigh high teds removed per new orders for provider. Thigh High teds were discontinued and she was started on knee high compressions socks. Patient tolerating well. Will continue to monitor.
[2020-10-29 15:36] VITALS: BP 131/55; PULSE 82; TEMP 98
[2020-10-30 05:20] VITALS: BP 135/64; PULSE 88; TEMP 97.9
--- NOTE | 2020-10-30 06:14 | NUR ---
PATIENT SLEPT WELL THROUGHOUT THE NIGHT. NO NEW ISSUES NOTED OR REPORTED BY PATIENT.
--- NOTE | 2020-10-30 07:33 | NUR ---
Patient resting in recliner, call light in reach and alarm set. Will continue to monitor.
--- NOTE | 2020-10-30 12:20 | NUR ---
Patient resting in recliner, call light in reach and alarm set. Patient reported still having right rib pain, so pain ointment was applied as well as [place]. Will continue to monitor. Patient currently eating her lunch.
[2020-10-30 16:17] VITALS: BP 152/68; PULSE 82; TEMP 98.5
--- NOTE | 2020-10-30 19:31 | NUR ---
RECEIVED CHANGE OF SHIFT REPORT FROM DAY SHIFT NURSE.
--- NOTE | 2020-10-30 20:00 | NUR ---
DECREASED STRENGTH TO RLE DUE TO RECENT HIP SURGERY. DENIES CHEST PAIN/SOA AT THIS TIME. DENIES NUMBNESS/TINGLING TO EXTREMITIES. BED ALARM ON WHEN IN BED.
--- NOTE | 2020-10-30 20:14 | NUR ---
This afternoon patient began walking with 1 person Touch assist to the bathroom. Patient was tolerating her pain very well in the morning, but this late afternoon patient began having more right hip pain. It was 5/10 and was given prn Flexeril and prn norco. Patient was upset this afternoon when she was placing her food order for tomorrow and she didn't get to place her order to be delivered at 12:30 pm as she had wanted. This nurse clarified why it was important that she have her lunch meal delivered at 12:00 instead of 12:30 as it would affect her ability to have enough time to eat before her afternoon therapies. Patient had felt she was never told about this before and then was mad at nursing staff, because they should have made her aware of this. This nurse did visit with patient for some time to see if all could be resolved. She did finally relax and is currently in bed, call light in reach and bed alarm set. Reported off to night nurse.
--- NOTE | 2020-10-31 02:00 | NUR ---
PATIENT SLEEPING. DOES NOT WAKE WHEN STAFF ENTERS ROOM AT THIS TIME.
[2020-10-31 05:14] VITALS: BP 140/61; PULSE 86; TEMP 98.2
[2020-10-31 06:16] LABS: BASO % 0.4 % (0.0-2.0); EOS # 0.4 (0.0-0.7); EOS % 5.2 % (0-4.0); GRAN # 5.2 (1.4-6.5); GRAN % 64.6 % (42.2-75.2); LYMPH # 1.8 (1.2-3.4); MEAN CELL VOLUME 104 fl (80.0-100.0); MEAN CORPUSCULAR HGB CONC 31 g/dl (33.0-37.0); MEAN PLATELET VOLUME 9.6 fl (7.4-10.4); MONO # 0.5 (0.1-0.6); MONO % 5.9 % (1.7-9.3); PLATELET COUNT 346 K/mm3 (130-400); RED BLOOD COUNT 2.34 M/mm3 (4.10-5.30); REDCELL DISTRIBUTION WIDTH-CV 15.6 % (11.5-14.5)
[2020-10-31 06:19] LABS: HEMATOCRIT 24.4 % (37.0-47.0); HEMOGLOBIN 7.5 g/dl (12.5-16.0); MEAN CORPUSCULAR HEMOGLOBIN 32 pg (27.0-31.0)
[2020-10-31 06:30] LABS: CALCIUM 8.4 mg/dL (8.4-10.2); CREATININE, serum 1.73 (0.52-1.25); MAGNESIUM 1.8 mg/dL (1.6-2.3); POTASSIUM 4.1 mmol/L (3.4-5.0)
--- NOTE | 2020-10-31 07:05 | NUR ---
CHANGE OF SHIFT REPORT GIVEN TO DAY SHIFT NURSE, BRANDT ARECHIGA AND CAPSTONE STUDENT.
--- NOTE | 2020-10-31 08:00 | NUR ---
PATIENT ALERT AND ORIENTED X3. VSS. NO COMPLAINTS OF N/V AT THIS TIME. PATIENT DOES COMPLAIN OF PAIN IN HER RIBS, 1 PRN NORCO TAB GIVEN PRIOR TO THERAPY SESSIONS. MORNING MEDS PASSED, PATIENT REFUSES MIRALAX. HEAD TO TOE ASSESSMENT COMPLETED. LUNG SOUNDS ARE CLEAR IN ALL LOBES. HEART SOUNDS ARE REGULAR AND NORMAL. BOWEL SOUNDS ARE ACTIVE IN ALL FOUR QUADRANTS AND THE ABDOMEN IS SOFT. PATIENT DENIES ANY PAIN OR TENDERNESS IN HER CALVES. THERE IS NO REDNESS OR ABNORMAL WARMTH IN THE LOWER EXTREMITIES. THERE IS SOME MILD EDEMA IN THE ANKLES AND FEET WITH +2 PITTING NOTED. PULSES ARE STILL PALPABLE. INCISION SITE TO THE RIGHT HIP IS OPEN TO AIR AND EDGES ARE WELL APPROXIMATED. PATIENT IN BED EATING BREAKFAST, DENIES ANY FURTHER NEEDS AT THIS TIME. BED LEFT IN THE LOWEST POSITION WITH CALL LIGHT LEFT IN REACH.
--- NOTE | 2020-10-31 09:45 | NUR ---
ROUNDING, SEE ORDERS.
[2020-10-31 15:55] VITALS: BP 150/66; PULSE 90; TEMP 97.7
--- NOTE | 2020-10-31 19:00 | NUR ---
Received report from [place]. Patient sitting in the recliner, talking on the phone.
--- NOTE | 2020-10-31 21:20 | NUR ---
Assesment done. Patient back to bed. She reports pain of 3/10. SCD placed on BLE. Call light within reach.
--- NOTE | 2020-11-01 01:45 | NUR ---
Patient called complaining of pain with pain score of 7/10. [place] given.
[2020-11-01 05:51] VITALS: BP 140/68; PULSE 92; TEMP 97.9
--- NOTE | 2020-11-01 05:55 | NUR ---
Patient denies pain at this time. No other needs noted. [place] given once last night.
--- NOTE | 2020-11-01 09:08 | NUR ---
PT DENIED PAIN THIS AM, UTILIZED GRABBER TO PLACE OWN UNDERWEAR AND PANTS ON WHILE SEATED AT THE TOILET, DID NEED CUEING ON PROPER TECHNIQUE. PT GIVEN PRN NORCO 1 TAB THIS AM, LIDOCAINE PATCH TO BACK AND RT RIBS WELL VOLTAREN GEL TO BOTH AREAS WELL.
--- NOTE | 2020-11-01 14:11 | NUR ---
Pantograph Ii Engraver met with the patient to follow up. The patient has a family meeting tomorrow 11/02 at 1330. The patient's and daughter will be present.
[2020-11-01 16:30] VITALS: BP 141/63; PULSE 86; TEMP 97.5
--- NOTE | 2020-11-01 17:23 | NUR ---
PT HAS C/O PAIN 7/10 AT [facility] AND RECEIVED PRN NORCO ONCE THIS SHIFT. PT AMBULATING TO BATHROOM SLOWLY, BUT DOING WELL. NO OTHER COMPLAINTS
--- NOTE | 2020-11-01 23:29 | NUR ---
Patient sitting up in the chair upon enter the room. Shift assessment completed. Patient denies any pain or discomfort at this time. Denies SOB/dyspnea or N/V. All scheduled meds given per SEP. Assisted patient to the bathroom to void. Changed to personal gown. SCDs on to BLE. Call light within reach. Patient denies further needs at this time.
[2020-11-02 04:36] VITALS: BP 143/64; PULSE 88; TEMP 97.9
[2020-11-02 07:23] LABS: MEAN CELL VOLUME 102 fl (80.0-100.0); MEAN CORPUSCULAR HGB CONC 31 g/dl (33.0-37.0); MEAN PLATELET VOLUME 9.2 fl (7.4-10.4); PLATELET COUNT 338 K/mm3 (130-400); RED BLOOD COUNT 2.45 M/mm3 (4.10-5.30); REDCELL DISTRIBUTION WIDTH-CV 15.4 % (11.5-14.5)
[2020-11-02 07:30] LABS: HEMATOCRIT 24.9 % (37.0-47.0); HEMOGLOBIN 7.7 g/dl (12.5-16.0); MEAN CORPUSCULAR HEMOGLOBIN 31 pg (27.0-31.0)
[2020-11-02 07:48] LABS: CALCIUM 8.6 mg/dL (8.4-10.2); CREATININE, serum 1.49 (0.52-1.25); MAGNESIUM 1.7 mg/dL (1.6-2.3); POTASSIUM 4.6 mmol/L (3.4-5.0)
--- NOTE | 2020-11-02 08:48 | NUR ---
Patient resting in recliner, call light in reach and bed alarm set. Patient denies any questions at this time.
--- NOTE | 2020-11-02 09:48 | NUR ---
Patient working with ST at this time. Given prn Newton prior to OT visit at 10 am.
[2020-11-02 10:01] LABS: BAND 3 % (0-10); EOSINOPHIL 5 % (0-4); LYMPHOCYTE 25 % (20.0-51.0); METAMYELOCYTE 1 % (0-0); NEUTROPHILS 61 % (42.0-75.2); PLATELET ESTIMATE NORMAL (NORMAL)
[2020-11-02 10:03] LABS: HYPOCHROMIA 3+
--- NOTE | 2020-11-02 14:04 | NUR ---
Roller Man attended a family meeting for the patient. Those present were the patient's daughter Leatha, and patient's Lionel Pilar IPR Director, PT/OT/ST staff and respective students. Pilar began the meeting by discussing it's purpose. PT/OT/ST staff discussed the patient's progress. The patient's tentative discharge date is set for , November 10. The team is recommending home health services. The family and patient were in agreeance. After the meeting, SW presented [email or web address]'s list of home health agencies to patient, Lionel Zhang. They will review the list then inform SW of decision.
[2020-11-02 15:58] VITALS: BP 147/76; PULSE 95; TEMP 97.9
--- NOTE | 2020-11-02 16:21 | NUR ---
Ladies Locker Room Attendant met with the patient to present the Team Conference Note. The patient had no questions at this time.
--- NOTE | 2020-11-02 19:43 | NUR ---
Patient attended all therapies today. She reported more pain this afternoon to her right hip and was given prn Fowler with some effect. This nurse also applied Voltoran to patient's hip this evening. She was also given ice for right hip comfort. Patient resting in bed, call light in reach and bed alarm set. Reported off to night nurse.
--- NOTE | 2020-11-02 20:00 | NUR ---
DENIES CHEST PAIN/SOA AT THIS TIME. DENIES NUMBNESS/TINGLING TO EXTREMITIES AT THIS TIME. ICE PACK TO RIGHT HIP CONTINUES NEEDED. BED ALARM ON WHEN IN BED.
--- NOTE | 2020-11-02 21:07 | NUR ---
RECEIVED CHANGE OF SHIFT REPORT FROM DAY SHIFT NURSE.
--- NOTE | 2020-11-03 01:30 | NUR ---
PATIENT SLEEPING, DOES NOT WAKE WHEN ROOM ENTERED BY STAFF. BREATHING NONLABORED AND EVEN. BED ALARM ON.
[2020-11-03 05:23] VITALS: BP 125/70; PULSE 83; TEMP 97.3
--- NOTE | 2020-11-03 06:54 | NUR ---
CHANGE OF SHIFT REPORT GIVEN TO DAY SHIFT NURSE, EMILI ARECHIGA.
--- NOTE | 2020-11-03 09:23 | NUR ---
Patient working with PT at this time.
[2020-11-03 17:05] VITALS: BP 164/73; PULSE 92; TEMP 97.6
--- NOTE | 2020-11-03 18:30 | NUR ---
Patient attended all therapies this shift. She reported pain 6/10 this morning and was given Voltoran to help with rib pain and hip pain along with Corinth. Patient's accuchecks were changed from ACHS to One time daily see new orders. Patient's diet was changed from ADA to Regular diet per Dr. Smith. Patient's bottom is healing well. Will continue to monitor. Patient's stopped by and OT reviewed with him and the patient regarding bathroom set up recommendations for when she returns home. Reported off to night nurse.
--- NOTE | 2020-11-03 19:30 | NUR ---
RECEIVED CHANGE OF SHIFT REPORT FROM DAY SHIFT NURSE. BED ALARM ON WHEN IN BED.
--- NOTE | 2020-11-03 20:00 | NUR ---
DENIES CHEST PAIN/SOA AT THIS TIME. DENIES NUMBNESS/TINGLING TO EXTREMITIES. [id number] HAS SORE MUSCLES FROM THERAPIES PERFORMED TODAY. SEE MAR FOR PAIN MEDS GIVEN. BED ALARM ON WHEN IN BED.
--- NOTE | 2020-11-03 22:25 | NUR ---
STATES FELT PAIN TO RIGHT HIP AREA BUT REFUSED OFFER OF PAIN MEDS WHEN NEXT AVAILABLE, STATES SHE WILL LET STAFF KNOW IF SHE NEEDS A PAIN MED
[2020-11-04 04:40] VITALS: BP 130/68; PULSE 71; TEMP 97.2
--- NOTE | 2020-11-04 06:55 | NUR ---
CHANGE OF SHIFT REPORT GIVEN TO DAY SHIFT NURSE, MADINA ARECHIGA.
--- NOTE | 2020-11-04 09:57 | NUR ---
PT REPORTS ARTHRITIC PAIN THIS AM AND FEELING STIFF. LIDOCAINE PATCH TO LOWER BACK AND RT RIBS WELL VOLTAREN GEL TO BOTH LOCATIONS, PRN NORCO 1 TAB GIVEN PRIOR TO THERAPY.
--- NOTE | 2020-11-04 16:00 | NUR ---
Market Development Trainer met with the patient and the patient's daughter, Leatha to follow up before the weekend. There are no questions or concerns at this time. The patient and Leatha decided on a home health agency, [facility].
[2020-11-04 16:29] VITALS: BP 139/59; PULSE 88; TEMP 98.2
--- NOTE | 2020-11-04 20:00 | NUR ---
JUST RETURNED FROM [facility] W/WALKER. SLOW GUARDED GAIT STEADY. NO RESP DISTRESS. VOIDING W/O S/S UTI. MELITON BENJAMIN TAKEN OFF. SCD'S ON BILAT. CALL LIGHT IN REACH BED ALARM SET.
[2020-11-05 05:33] VITALS: BP 150/71; PULSE 86; TEMP 97.6
--- NOTE | 2020-11-05 05:55 | NUR ---
PT AWAKE. NO NEEDS AT THIS TIME.
--- NOTE | 2020-11-05 08:00 | NUR ---
PATIENT IS A&O. VSS. PATIENT REPORTS DISCOMFORT IN BACK & RLE RATED AT 2-3 ON PAIN SCALE AND DENIES NEED FOR PAIN MEDS AT THIS TIME. RIGHT HIP INCISION IS WELL APPROXIMATED AND DONG. PATIENT IS A 1 ASSIST WITH WALKER. PT/OT CONSULTED. NOTED +1 BLE EDEMA. POSITIVE PEDAL PULSES. PATIENT EAT/DRINK/VOIDING SUFFICENT AMOUNTS. NO C/O N/V. AM BS WAS 108, NO SSI REQUIRED. BREAKFAST TRAY AT BEDSIDE. HEAD TO TOE ASSESSMENT COMPLETE. CALL LIGHT IN REACH. BED ALARM ON.
[2020-11-05 17:15] VITALS: BP 176/84; PULSE 92; TEMP 97.8
[2020-11-05 18:35] VITALS: BP 159/82
[2020-11-06 06:13] VITALS: BP 159/76; PULSE 89; TEMP 97.6
--- NOTE | 2020-11-06 08:00 | NUR ---
PATIENT IS A&O. VSS. PATIENT REPORTS NO DISCOMFORT IN BACK & RLE RATED AT THIS TIME AND DENIES NEED FOR PAIN MEDS AT THIS TIME. RIGHT HIP INCISION IS WELL APPROXIMATED AND FRONT DESK MONITOR. PATIENT IS A 1 ASSIST WITH WALKER. PT/OT CONSULTED. NOTED +1 BLE EDEMA. POSITIVE PEDAL PULSES. PATIENT EAT/DRINK/VOIDING SUFFICENT AMOUNTS. NO C/O N/V. AM BS WAS 98, NO SSI REQUIRED. BREAKFAST TRAY AT BEDSIDE. HEAD TO TOE ASSESSMENT COMPLETE. CALL LIGHT IN REACH. BED ALARM ON.
--- NOTE | 2020-11-06 14:15 | NUR ---
REPORTED OFF TO HAWK KLEIN WHO IS TAKING OVER PATIENT CARE.
[2020-11-06 16:52] VITALS: BP 153/74; PULSE 89; TEMP 98.1
--- NOTE | 2020-11-06 16:58 | NUR ---
PATIENT RESTING IN BED EATING MCALISTERS. PATIENT REPORTS THAT HER LOW BACK PAIN IS ACHY IN NATURE AND IS RATING IT A 2/10 ON A 0-10 SCALE. CALL LIGHT IN REACH. BED ALARM ON. PATIENT DENIES ADDITIONAL NEEDS AT THIS TIME.
--- NOTE | 2020-11-06 18:31 | NUR ---
PATIENT RESTING IN BED WATCHING TV. CALL LIGHT IN REACH. BED ALARM ON. WILL REPORT OFF TO ONCOMING NURSE.
[2020-11-07 05:44] VITALS: BP 149/75; PULSE 90; TEMP 98.1
[2020-11-07 07:33] LABS: BASO % 0.4 % (0.0-2.0); EOS # 0.3 (0.0-0.7); EOS % 3.5 % (0-4.0); GRAN # 6.6 (1.4-6.5); GRAN % 67.3 % (42.2-75.2); LYMPH # 2.2 (1.2-3.4); LYMPH % 22.2 % (20.0-51.0); MEAN CELL VOLUME 101 fl (80.0-100.0); MEAN CORPUSCULAR HGB CONC 31 g/dl (33.0-37.0); MEAN PLATELET VOLUME 8.9 fl (7.4-10.4); MONO # 0.5 (0.1-0.6); MONO % 5.3 % (1.7-9.3); PLATELET COUNT 393 K/mm3 (130-400); REDCELL DISTRIBUTION WIDTH-CV 15.4 % (11.5-14.5)
[2020-11-07 07:34] LABS: HEMATOCRIT 27.2 % (37.0-47.0); HEMOGLOBIN 8.4 g/dl (12.5-16.0); MEAN CORPUSCULAR HEMOGLOBIN 31 pg (27.0-31.0)
[2020-11-07 08:07] LABS: CALCIUM 8.9 mg/dL (8.4-10.2); CREATININE, serum 1.4 (0.52-1.25); MAGNESIUM 1.8 mg/dL (1.6-2.3); POTASSIUM 3.9 mmol/L (3.4-5.0)
--- NOTE | 2020-11-07 09:46 | NUR ---
PT DENIED PAIN WHILE SITTING ON EOB THIS AM. VOLTAREN GEL AND LIDOCAINE PATCHES TO LOWER BACK AND RT LOWER RIBS, WELL PRN NORCO GIVEN PRIOR TO THERAPY.
--- NOTE | 2020-11-07 13:34 | NUR ---
Art Sales Consultant faxed referral to Kourtney at [facility].
[2020-11-07 17:11] VITALS: BP 132/79; PULSE 97; TEMP 98.1
--- NOTE | 2020-11-07 18:47 | NUR ---
PT MADE MOD-I IN ROOM PER THERAPY TODAY, TOLERATING WELL, ENCOURAGED TO CALL FOR ANY NEEDS IF NECESSARY. TWO PRN NORCO'S GIVEN AND 1 PRN APAP THIS SHIFT.
--- NOTE | 2020-11-07 21:01 | NUR ---
ALERT AND OX3. HAS PAIN THIS EVEN TO RIBS/RT HIP BUT WANTS TO WAIT UNTIL 10P TO TAKE PAIN PILL. DENIES SOA UNLESS RELATED TO RIB PAIN WHEN BREATHING DEEP. PASSING GAS AND HAVING BM. UP INDEPENDENTLY W WALKER. AWAITING TO GIVE PM MEDS PER PT REQUEST WILL TAKE THEM ALL TOGETHER. POC DISCUSSED. NEEDS MET.
[2020-11-08 04:21] VITALS: BP 135/76; PULSE 66; TEMP 97.3
--- NOTE | 2020-11-08 05:05 | NUR ---
RESTED THROUGH THE NIGHT WITHOUT INCIDENT. NEEDS MET.
--- NOTE | 2020-11-08 08:24 | NUR ---
Patient independent in room, call light in reach and denies any questions at this time.
--- NOTE | 2020-11-08 10:19 | NUR ---
Initial visit; Patient thanked Live In Housekeeper for looking in on her and offering God's blessings.
--- NOTE | 2020-11-08 11:07 | NUR ---
Patient currently working with Group at this time.
--- NOTE | 2020-11-08 16:47 | NUR ---
Patient attended all therapies this shift. She reported some pain to her upper right ribs due to fracture and ointment was applied to that area. She also gets Lidocaine patches to help with pain. Patient is independent in her room and her and daughter have been by her side this afternoon. Patient's heating pad was not working properly so it was replaced this afternoon. Patient has been given prn tylenol to help with chronic back pain as well. Will continue to monitor.
[2020-11-08 17:49] VITALS: BP 146/66; PULSE 87; TEMP 97.8
--- NOTE | 2020-11-08 20:00 | NUR ---
PATIENT IS A&O. VSS. PATIENT REPORTS DISCOMFORT IN RIGHT SIDE/RIBS RATED AT 4-5 ON PAIN SCALE AND WAS GIVEN PRN NORCO, ONE TAB FOR PAIN WITH EVENING MEDS. RIGHT HIP INCISION IS WELL APPROXIMATED AND DONG. PATIENT IS INDEPENDENT IN ROOM WITH WALKER. PT/OT. PATIENT REPORTS SHE WILL GO HOME SATURDAY. NOTED +1 BLE EDEMA. POSITIVE PEDAL PULSES. PATIENT EAT/DRINK/VOIDING SUFFICENT AMOUNTS. NO C/O N/V. HEAD TO TOE ASSESSMENT COMPLETE. CALL LIGHT IN REACH.
[2020-11-09 05:55] VITALS: BP 162/78; PULSE 87; TEMP 97.3
--- NOTE | 2020-11-09 10:25 | NUR ---
Patient is independent in her room and working with speech therapy at this time.
[2020-11-09 14:48] VITALS: BP 137/69; PULSE 86; TEMP 97.7
--- NOTE | 2020-11-09 15:19 | NUR ---
Billing Collections Specialist met with the patient to present the Team Conference Note. The patient has no questions or concerns at this time.
[2020-11-09] MEDS ORDERED: FERROUS SU325 MG/TAB PO (15:21)
[2020-11-09] MEDS ORDERED: VOLTAREN GEL 1%1 TU TP (15:22)
[2020-11-09] MEDS ORDERED: BLUE-EMU LIDOC1 EACH TP (15:23)
[2020-11-09] MEDS ORDERED: FOLIC ACID 11 MG/TA1 PO (15:23)
[2020-11-09] MEDS ORDERED: NORCO 325 MG-51 TAB PO (15:24)
--- NOTE | 2020-11-09 19:03 | NUR ---
RECEIVED CHANGE OF SHIFT REPORT FROM DAY SHIFT NURSE. PATIENT UP IN ROOM AD KIAN WITH NO REPORTED CONCERNS OR PROBLEMS.
--- NOTE | 2020-11-09 19:09 | NUR ---
Patient attended all therapies today. She continues to be independent in her room with her walker. She tolerated diet well this shift. Patient had pain to her right upper ribs and was given prn Milo with good effect as well as voltoran ointment and Lidocain patches. Patient was able to be independent with all her cares today. She used her call light appropriatly this shift. Reported off to night nurse.
--- NOTE | 2020-11-09 20:00 | NUR ---
PATIENT UP IN ROOM AD KIAN WITH NO REPORTED PROBLEMS OR CONCERNS. EXPECTS TO BE DISCHARGE FROM [facility] TOMORROW.
[2020-11-10 04:23] VITALS: BP 148/74; PULSE 90; TEMP 98
--- NOTE | 2020-11-10 06:45 | NUR ---
CHANGE OF SHIFT REPORT GIVEN TO DAY SHIFT NURSEMADINA RN
--- NOTE | 2020-11-10 09:19 | NUR ---
PT REPORTS SOME MILD PAIN IN RIBS TODAY, UTILIZED LIDOCAINE AND VOLTAREN GEL. PT IS MOD-I IN ROOM AND DISCHARGING TODAY.
--- NOTE | 2020-11-10 10:06 | NUR ---
Follow-up; Flash Welding Machine Operator offered "Good morning" and God's blessings to April Wiggins who is always friendly and sweet.
--- NOTE | 2020-11-10 14:26 | NUR ---
PT GIVEN PRN NORCO AT 0915 THIS AM FOR RIB PAIN. WHILE CHECKING BOTTOM FOR SKIN INTEGRITY THIS AM, THIS NURSE NOTED EITHER SMEARING OR INADEQUATE CLEAN UP AFTER BM. MIN ASSISTANCE TO WIPE AWAY LEFT OVER. PT HEALTH SUMMARY, DISCHARGE SUMMARY, AND HOME MEDS PRINTED AND REVIEWED WITH PT AND , AND DAUGTHER CALLED SEPERATELY. STRESSED IMPORTANCE OF F/U APPTS. REVIEWED MEDICATIONS, PROVIDED ESCRIPTS FOR NORCO AND LIDOCAINE PATCHES. BELONGINGS GATHERED BY PT AND . PT TRANSPORTED VIA WC BY NURSE AND SEATBELTED FOR RIDE HOME. PT AND RELATION DENIED QUESTIONS.
--- NOTE | 2020-11-10 14:41 | NUR ---
The patient discharged home today, 11/10 with [facility]. SW faxed discharge orders. There are no additional needs at this time.
== END 2020-11-10 12:00 | disposition home health service (06) | DRG 559 ==
PROVIDERS: ADMIT Internal Medicine
DX: S72.001D Fracture of unspecified part of neck of right femur, subsequent encounter for closed fracture with routine healing (principal); J96.01 Acute respiratory failure with hypoxia; N17.9 Acute kidney failure, unspecified; N39.0 Urinary tract infection, site not specified; D62 Acute posthemorrhagic anemia; E11.22 Type 2 diabetes mellitus with diabetic chronic kidney disease; I12.9 Hypertensive chronic kidney disease with stage 1 through stage 4 chronic kidney disease, or unspecified chronic kidney disease; N18.30 Chronic kidney disease, stage 3 unspecified; D63.1 Anemia in chronic kidney disease; Z66 Do not resuscitate; G31.84 Mild cognitive impairment of uncertain or unknown etiology; S22.069D Unspecified fracture of T7-T8 vertebra, subsequent encounter for fracture with routine healing; S22.43XD Multiple fractures of ribs, bilateral, subsequent encounter for fracture with routine healing; I25.10 Atherosclerotic heart disease of native coronary artery without angina pectoris; B96.20 Unspecified Escherichia coli [E. coli] as the cause of diseases classified elsewhere; M19.90 Unspecified osteoarthritis, unspecified site; E66.9 Obesity, unspecified; E78.5 Hyperlipidemia, unspecified; K59.00 Constipation, unspecified; W19.XXXD Unspecified fall, subsequent encounter; Z79.891 Long term (current) use of opiate analgesic; Z79.82 Long term (current) use of aspirin; Z79.84 Long term (current) use of oral hypoglycemic drugs
CPT/HCPCS: 99222-AI; 99231-AI; 99232-AI; 99238; A9284

== ENCOUNTER → 2021-01-23 | Outpatient (CLI) | payer MEDICARE ==
[~2021-01-23] MED LIST changes: +ASPI325T6 PO; +B-121000 MCG PO; +BLUE-EMU LIDOC1 EACH TP; +COLCRYS0.6 MG PO; +DUO-KAPS1 CAP PO; +FERROUS SU325 MG/TAB PO; +FOLIC ACID 11 MG/TA1 PO; +GLUMETZA1000 MG PO; +INDOCIN 25MG CA25 MG; +INDOCIN 25MG CA25 MG PO; +ONE-A-DAY ESSE1 EACH PO; +OSCAL 500 TAB500 MG PO; +PREDNISONE10 MG PO; +ROXICODONE 55 MG/TAB PO; +SEPTRA DS 8001 TAB PO; +TYLENOL 325MG325 MG PO; +VALIUM 5MG T5 MG/TAB PO; +VOLTAREN GEL 1%1 TU TP; +ZYLOPRIM 100MG100 MG PO
== END ==
LOC: ZCOL.LAB 11:38
DX: D64.9 Anemia, unspecified (principal)

== ENCOUNTER → 2021-01-24 | Outpatient (CLI) | payer MEDICARE ==
[2021-01-24 11:41] LABS: HEMATOCRIT 29.7 % (37.0-47.0); MEAN CELL VOLUME 104 fl (80.0-100.0); MEAN CORPUSCULAR HEMOGLOBIN 31 pg (27.0-31.0); MEAN CORPUSCULAR HGB CONC 30 g/dl (33.0-37.0); MEAN PLATELET VOLUME 9.2 fl (7.4-10.4); PLATELET COUNT 416 K/mm3 (130-400); RED BLOOD COUNT 2.86 M/mm3 (4.10-5.30)
== END ==
LOC: COL.LAB 11:18
PROVIDERS: Internal Medicine
DX: D64.9 Anemia, unspecified (principal)

== ENCOUNTER 2021-03-01 08:27 | Day surgery (SDC) | payer MEDICARE ==
[~2021-03-01] VITALS: Ht 165.1 cm; Wt 76.8 kg
[~2021-03-01 08:27] MED LIST changes: -COLCRYS0.6 MG PO; -GLUMETZA1000 MG PO; -INDOCIN 25MG CA25 MG; -INDOCIN 25MG CA25 MG PO; -ONE-A-DAY ESSE1 EACH PO; -PREDNISONE10 MG PO; -VALIUM 5MG T5 MG/TAB PO; -ZYLOPRIM 100MG100 MG PO
[2021-03-01 09:19] VITALS: BP 134/84; PULSE 90; TEMP 97.6
[2021-03-01] MEDS ORDERED: VALIUM 5MG T5 MG/TAB PO (09:29)
[2021-03-01 11:50] VITALS: BP 127/62; PULSE 83; TEMP 98.4
[2021-03-01 12:05] VITALS: BP 130/75; PULSE 81
[2021-03-01 12:40] VITALS: BP 137/79; PULSE 79; TEMP 98.1
[2021-03-01 12:43] LABS: HEMATOCRIT 26.1 % (37.0-47.0); HEMOGLOBIN 8.1 g/dl (12.5-16.0)
--- NOTE | 2021-03-01 14:14 | NUR ---
1150: PATIENT ARRIVED BACK FROM PROCEDURE. WANTED APPLE JUICE AND SALTINES. DR. CHEW REQUESTING AN H&H BE DRAWN. LAB NOTIFIED. VITAL SIGNS STABLE. 1205: VITALLY STABLE. TOLERATED FOOD AND DRINK. 1220: PATIENT VOIDED. LAB ARRIVED TO DRAW BLOOD. 1240: LABS DRAWN. PATIENT GOT DRESSED. LABS RESULTED AND COMMUNICATED TO DR. CHEW. PT TO FOLLOW UP WITH NAINA AND OFFICE WILL CALL TO GET APPOINTMENT SCHEDULED. 1300: PATIENT WENT TO REST ROOM 1320: PATIENT ESCORTED OUT VIA WHEELCHAIR. PICKED UP PATIENT.
== END 2021-03-01 13:20 ==
LOC: SDCO 08:27
PROVIDERS: Internal Medicine Gastroenterology
DX: K29.50 Unspecified chronic gastritis without bleeding (principal); K57.30 Diverticulosis of large intestine without perforation or abscess without bleeding; K63.89 Other specified diseases of intestine; I12.9 Hypertensive chronic kidney disease with stage 1 through stage 4 chronic kidney disease, or unspecified chronic kidney disease; E11.22 Type 2 diabetes mellitus with diabetic chronic kidney disease; N18.30 Chronic kidney disease, stage 3 unspecified; M19.90 Unspecified osteoarthritis, unspecified site; E78.5 Hyperlipidemia, unspecified; D51.9 Vitamin B12 deficiency anemia, unspecified; Z79.899 Other long term (current) drug therapy; Z79.84 Long term (current) use of oral hypoglycemic drugs
CPT/HCPCS: J2704

== ENCOUNTER 2021-03-10 02:03 | Observation (INO) | payer MEDICARE ==
[~2021-03-10] VITALS: Ht 165.1 cm; Wt 75.0 kg
[~2021-03-10 02:03] MED LIST changes: +VALIUM 5MG T5 MG/TAB PO
[2021-03-10 03:07] LABS: BASO % 0.5 % (0.0-2.0); EOS # 0.1 (0.0-0.7); EOS % 0.9 % (0-4.0); GRAN # 5.9 (1.4-6.5); GRAN % 74.2 % (42.2-75.2); LYMPH # 1.4 (1.2-3.4); LYMPH % 17.6 % (20.0-51.0); MEAN CELL VOLUME 101 fl (80.0-100.0); MEAN CORPUSCULAR HGB CONC 31 g/dl (33.0-37.0); MEAN PLATELET VOLUME 9.4 fl (7.4-10.4); MONO # 0.5 (0.1-0.6); MONO % 6.4 % (1.7-9.3); PLATELET COUNT 221 K/mm3 (130-400); RED BLOOD COUNT 2.92 M/mm3 (4.10-5.30); REDCELL DISTRIBUTION WIDTH-CV 16.7 % (11.5-14.5)
[2021-03-10 03:09] LABS: HEMATOCRIT 29.6 % (37.0-47.0); HEMOGLOBIN 9.2 g/dl (12.5-16.0); MEAN CORPUSCULAR HEMOGLOBIN 32 pg (27.0-31.0)
[2021-03-10 03:29] LABS: ALBUMIN 3.9 gm/dL (3.5-5.0); BILIRUBIN,TOTAL 0.5 mg/dL (0.0-1.0); CALCIUM 9.5 mg/dL (8.4-10.2); CREATININE, serum 1.66 (0.52-1.25); POTASSIUM 4.3 mmol/L (3.4-5.0); TOTAL PROTEIN 7.2 gm/dL (6.4-8.2); URIC ACID 9.5 mg/dL (2.5-6.2)
[2021-03-10 03:30] LABS: ERYTHROCYTE SEDIMENTATION RATE 65 mm/hr (0-30)
[2021-03-10 06:08] LABS: COLLECTION METHOD CLEAN CATCH
[2021-03-10 06:15] LABS: MUCOUS Present /lpf; PH 5 (5-8); SQUAMOUS EPITHELIAL 0-2 /hpf; URINE APPEARANCE Hazy; URINE BACTERIA Rare /hpf; URINE BILIRUBIN Negative (NEGATIVE); URINE BLOOD Negative (NEGATIVE); URINE COLOR Yellow; URINE GLUCOSE Negative (NEGATIVE); URINE KETONE Negative (NEGATIVE); URINE LEUKOCYTE ESTERASE Trace (NEGATIVE); URINE NITRATE Negative (NEGATIVE); URINE PROTEIN(semi-quant) Negative (NEGATIVE); URINE RBC 0-2 /hpf; URINE UROBILINOGEN Negative (NEGATIVE)
[2021-03-10] MEDS ORDERED: INDOCIN 25MG CA25 MG (06:18)
[2021-03-10] MEDS ORDERED: COLCRYS0.6 MG PO (06:19)
[2021-03-10] MEDS ORDERED: INDOCIN 25MG CA25 MG PO (07:05)
[2021-03-10] MEDS ORDERED: GLUMETZA1000 MG PO (07:10)
[2021-03-10] MEDS ORDERED: FERROUS SU325 MG/TAB PO (07:14)
[2021-03-10] MEDS ORDERED: ONE-A-DAY ESSE1 EACH PO (07:14)
[2021-03-10] MEDS ORDERED: B-121000 MCG PO (07:15)
[2021-03-10 09:50] VITALS: BP 130/58; PULSE 75; TEMP 97.7
[2021-03-10 11:41] VITALS: BP 137/69; PULSE 80; TEMP 98.7
--- NOTE | 2021-03-10 13:41 | NUR ---
SW met with the patient to discuss discharge plan. The patient lives in [place] with her , Lionel (c.ph#[phone]), and daughter, Leatha. She reports independence with ADLs and has a walker. She states that she receives outpatient PT at [facility] on [address]. The patient's PCP is Dr. James Farfan and she receives her medications from [facility]. She reports no difficulties obtaining her meds. The patient's DPOA-HC is in EMR and it designates her . The patient plans to return home with her family and resume outpatient PT at [facility] on [address] upon discharge. No additional needs at this time. *Discharge plan: home with family and outpatient PT*
[2021-03-10 15:40] VITALS: BP 129/64; PULSE 83; TEMP 98.5
[2021-03-10 20:23] VITALS: BP 133/67; PULSE 85; TEMP 98.5
--- NOTE | 2021-03-10 22:00 | NUR ---
Patient is resting in bed, alert and oriented. VSS, No nausea or vomiting. Complains of some pain in her left foot. Some edema present. Patient is able to go to the restroom and back to bed with the use of the walker. No major complains. Assessment completed and meds provided. No further needs at this time. Call light within reach.
[2021-03-11 00:27] VITALS: BP 122/59; PULSE 75; TEMP 97.7
[2021-03-11 04:21] VITALS: BP 117/75; PULSE 80; TEMP 97.6
--- NOTE | 2021-03-11 05:44 | NUR ---
Patient has been calm during the night. VSS. Some pain in her left foot but did not required medication. Continue monitoring. Shift report will be given to day nurse.
[2021-03-11 07:40] VITALS: BP 131/74; PULSE 82; TEMP 97.9
--- NOTE | 2021-03-11 07:55 | NUR ---
Shift assessment complete. Pt assisted to restroom SBA. A&Ox4. Heart RRR. Lungs CTA. No complaints this morning. Some mild redness and swelling to toes on left foot, denies pain in this foot at this time. Call light in reach. Continuing to monitor.
[2021-03-11] MEDS ORDERED: ZYLOPRIM 100MG100 MG PO (08:48)
[2021-03-11] MEDS ORDERED: PREDNISONE10 MG PO (08:50)
--- NOTE | 2021-03-11 11:00 | NUR ---
Discharge instructions discussed w/pt and all questions answered. IV to left AC removed w/tip intact. Pt escorted out to car via wheelchair w/all belongings, accompanied by .
== END 2021-03-11 11:00 | disposition home or self-care (01) ==
LOC: COL.ER 02:03 → MEDICAL 04:55 → EDBEDREQ 06:38 → MEDICAL 03-11 11:00
PROVIDERS: Emergency Medicine; ADMIT Student in an Organized Health Care Education/Training Program
DX: M10.9 Gout, unspecified (principal); M79.672 Pain in left foot; R53.81 Other malaise; I10 Essential (primary) hypertension; E78.5 Hyperlipidemia, unspecified; R53.1 Weakness; E11.9 Type 2 diabetes mellitus without complications; N18.9 Chronic kidney disease, unspecified; D53.9 Nutritional anemia, unspecified; G31.84 Mild cognitive impairment of uncertain or unknown etiology; J96.11 Chronic respiratory failure with hypoxia; E87.5 Hyperkalemia; Z79.899 Other long term (current) drug therapy; Z79.84 Long term (current) use of oral hypoglycemic drugs
CPT/HCPCS: G0378; J1644; J1815; J2543; J7512

== ENCOUNTER 2021-03-28 12:45 | Outpatient (RCR) | payer MEDICARE ==
[~2021-03-28 12:45] MED LIST changes: +COLCRYS0.6 MG PO; +GLUMETZA1000 MG PO; +INDOCIN 25MG CA25 MG; +INDOCIN 25MG CA25 MG PO; +ONE-A-DAY ESSE1 EACH PO; +PREDNISONE10 MG PO; +ZYLOPRIM 100MG100 MG PO
== END 2021-03-30 12:12 | disposition home or self-care (01) ==
LOC: WSPT
DX: S22.32XA Fracture of one rib, left side, initial encounter for closed fracture (principal); S22.31XA Fracture of one rib, right side, initial encounter for closed fracture; Z96.641 Presence of right artificial hip joint

== ENCOUNTER → 2021-07-03 | Outpatient (CLI) | payer MEDICARE ==
[2021-07-03 12:33] LABS: MEAN CELL VOLUME 100 fl (80.0-100.0); MEAN CORPUSCULAR HEMOGLOBIN 32 pg (27-31); MEAN CORPUSCULAR HGB CONC 32 g/dl (33.0-37.0); MEAN PLATELET VOLUME 9.4 fl (7.4-10.4); PLATELET COUNT 337 K/mm3 (130-400); REDCELL DISTRIBUTION WIDTH-CV 14.2 % (11.5-14.5)
== END ==
LOC: COL.LAB 12:03
DX: D64.9 Anemia, unspecified (principal)

== ENCOUNTER → 2021-09-01 | Outpatient (CLI) | payer MEDICARE | LOC: COL.RAD 10:02 | DX: H47.10 Unspecified papilledema (principal) ==

== ENCOUNTER 2021-10-29 10:26 | Emergency (ER) | payer MEDICARE ==
[~2021-10-29] VITALS: Ht 165.1 cm; Wt 72.7 kg
[2021-10-29 10:44] VITALS: TEMP 97.7
[2021-10-29] MEDS ORDERED: FLEXERIL 1010 MG/TAB PO (14:38)
[2021-10-29] MEDS ORDERED: IBU600 MG PO (14:38)
[2021-10-29 14:56] VITALS: BP 181/102; PULSE 81
[2021-11-19] MEDS ORDERED: MELATONIN5 M1 SL (16:24)
== END 2021-10-29 14:56 | disposition home or self-care (01) ==
LOC: COL.ER 10:26
DX: S39.012A Strain of muscle, fascia and tendon of lower back, initial encounter (principal); W01.0XXA Fall on same level from slipping, tripping and stumbling without subsequent striking against object, initial encounter

== ENCOUNTER 2021-11-13 04:03 | Inpatient (IN) | payer MEDICARE ==
[~2021-11-13] VITALS: Ht 162.6 cm; Wt 72.3 kg
[~2021-11-13 04:03] MED LIST changes: +IBU600 MG PO
[2021-11-13 04:47] LABS: BASO # 0.1 K/mm3 (0.0-0.2); BASO % 0.6 % (0.0-2.0); EOS # 0.6 K/mm3 (0.0-0.7); EOS % 4.2 % (0.0-4.0); GRAN # 7.2 K/mm3 (1.4-6.5); GRAN % 53.5 % (42.2-75.2); LYMPH # 4.6 K/mm3 (1.2-3.4); LYMPH % 34.5 % (20.0-51.0); MEAN CELL VOLUME 102 fl (80.0-100.0); MEAN CORPUSCULAR HGB CONC 32 g/dl (33.0-37.0); MEAN PLATELET VOLUME 9.8 fl (7.4-10.4); MONO # 0.9 K/mm3 (0.1-0.6); MONO % 6.7 % (1.7-9.3); PLATELET COUNT 469 K/mm3 (130-400); RED BLOOD COUNT 2.63 M/mm3 (4.10-5.30); REDCELL DISTRIBUTION WIDTH-CV 16.1 % (11.5-14.5)
[2021-11-13 04:48] LABS: HEMATOCRIT 26.7 % (37.0-47.0); HEMOGLOBIN 8.5 g/dl (12.5-16.0); MEAN CORPUSCULAR HEMOGLOBIN 32 pg (27-31)
[2021-11-13 05:05] LABS: ALBUMIN 3.2 gm/dL (3.4-4.8); BILIRUBIN,TOTAL 0.4 mg/dL (0.2-1.2); CALCIUM 10.2 mg/dL (8.4-10.2); CREATININE, serum 3.83 mg/dL (0.57-1.11); POTASSIUM 4.6 mmol/L (3.5-4.5); TOTAL PROTEIN 6.9 gm/dL (6.2-8.1)
[2021-11-13 06:01] LABS: COLLECTION METHOD IN
[2021-11-13 06:09] LABS: MUCOUS Present (NOT PRESENT); PH 5 (5-8); SQUAMOUS EPITHELIAL None Seen /hpf (0-10); URINE APPEARANCE Cloudy (CLEAR/HAZY); URINE BACTERIA Many /hpf (NONE SEEN); URINE BILIRUBIN Negative (NEGATIVE); URINE BLOOD 3+ (NEGATIVE); URINE COLOR Yellow (YELLOW); URINE GLUCOSE Negative (NEGATIVE); URINE KETONE Negative (NEGATIVE); URINE LEUKOCYTE ESTERASE 3+ (NEGATIVE); URINE NITRATE Negative (NEGATIVE); URINE PROTEIN(semi-quant) 1+ (NEGATIVE); URINE UROBILINOGEN Negative (NEGATIVE)
[2021-11-13] MEDS ORDERED: ZYLOPRIM 100MG100 MG PO (06:38)
[2021-11-13] MEDS ORDERED: ASPIRIN 81M81 MG/TA2 PO (06:41)
[2021-11-13] MEDS ORDERED: COZAAR100 MG PO (07:13)
--- NOTE | 2021-11-13 07:50 | NUR ---
arrived on unit per cart from ED, assisted off cart and into bed, she is alert and oriented, repositioned in bed for comfort
[2021-11-13 08:03] VITALS: BP 113/56; PULSE 80; TEMP 98.2
--- NOTE | 2021-11-13 08:10 | NUR ---
Stacie MONTOYA notified of patient's admission and the need for orders
--- NOTE | 2021-11-13 08:20 | NUR ---
RXM completed with patient, she appears to know what medications she takes but unsure if the last time taken was correct, she has not taken anything today
--- NOTE | 2021-11-13 08:57 | NUR ---
Dr Negro in to see patient, telemetry on
--- NOTE | 2021-11-13 09:10 | NUR ---
telemetry was verified with technical services coordinator, full admission assessment completed, see for further info
--- NOTE | 2021-11-13 10:15 | NUR ---
had breakfast and tolerated well, with warm wash cloth attempted to clean dried blood out of her hair, most of this has been completed but will try more later
--- NOTE | 2021-11-13 11:15 | NUR ---
in to visits, talks to this nurse about how his 's ability to care for herself and her memory have changed drastically in the last 2-3 weeks, encouraged him to talk with social staff worker about possible solutions after leaving hospital
[2021-11-13 11:44] VITALS: BP 122/63; PULSE 80; TEMP 97.5
--- NOTE | 2021-11-13 12:00 | NUR ---
offered lunch but declines since she had a late breakfast
--- NOTE | 2021-11-13 12:59 | NUR ---
appears to be sleeping, in bed with eyes closed, resp quiet and easy
--- NOTE | 2021-11-13 13:03 | NUR ---
NURA met with the patient and her , Lionel (ph#[phone]), to discuss discharge plan. The patient lives in [place] with her and their daughter, Leatha (ph#[phone]). Lionel states that the patient has been needing assistance with ADLs and that she has a walker. He states that the patient uses the walker, but also needs someone to assist her while walking. She does not have any home health services at this time. The patient's PCP is Dr. James Farfan and she receives her medications from [facility]. The patient's DPOA-HC is in EMR and it designates her . The alternate is her daughter, Leatha. Lionel informed NURA that she has been more confused and having more falls. She tends to get up at night, when they are sleeping. NURA discussed post-acute rehab upon discharge. Lionel is interested in SNF and would like NURA to go ahead and send referrals to the three local facilities. Referrals faxed to [facility], [facility], and [facility]. Awaiting screens. The patient has Medicare [employer] and will need auth for SNF. *Discharge plan: SNF*
--- NOTE | 2021-11-13 13:10 | NUR ---
awake now and requesting to have lunch, this was ordered for her
--- NOTE | 2021-11-13 13:45 | NUR ---
Nupur with [facility] cannot accept as they are not in network with [facility].
--- NOTE | 2021-11-13 13:54 | NUR ---
report given to HAWK Wynn
--- NOTE | 2021-11-13 14:25 | NUR ---
requesting ibuprofen for chronic low back pain, JAN De La Fuente notified
--- NOTE | 2021-11-13 14:42 | NUR ---
medicated with tylenol 650mg and lidocaine patch to low back for c/os pain,
[2021-11-13 17:11] VITALS: BP 126/58; PULSE 78; TEMP 98.2
--- NOTE | 2021-11-13 18:16 | NUR ---
Patient resting in bed, A&Ox3. VSS 1L NC O2, no reported SOB. IV CDI. Denies pain and discomfort. Bandon CDI. Coffey intact. Call light within reach. Bed alarm on
[2021-11-13 19:21] VITALS: BP 126/71; PULSE 79; TEMP 97.8
[2021-11-13 23:41] VITALS: BP 134/67; PULSE 89; TEMP 97.4
[2021-11-14] VITALS (12 sets, daily range): BP systolic 135–154; BP diastolic 61–81; PULSE 84–96; TEMP 97.6–98.4
--- NOTE | 2021-11-14 01:41 | NUR ---
PATIENT IN BED. ALERT AND ORIENTED. HS MEDS PER EMAR. REQUESTS SLEEPING PILLS, VALIUM AND RESTERIL ON HOLD PER ORDER FOR INCREASE FALL RISK. PATIENT VERBALIZED UNDERSTANDING. C/O MILD BACK PAIN, PRN TYLENOL GIVEN. L HEAD GHULAM INTACT. IV L WRIST WITH IVF. LUNA TO DD WITH CLOUDY YELLOW OUTPUT. AMBULATED WITH X1 ASSIST AND WALKER TO BATHROOM AND HAD LARGE FORMED BLACK STOOL. REMOVED FROM O2 AND SATS ARE STABLE ON ROOM AIR. DENIES ADDITIONAL NEEDS AT THIS TIME. CALL LIGHT IN REACH. RR EVEN AND UNLABORED.
[2021-11-14 07:14] LABS: CALCIUM 7.9 mg/dL (8.4-10.2); CREATININE, serum 3.06 mg/dL (0.57-1.11); POTASSIUM 3.9 mmol/L (3.5-4.5)
[2021-11-14 07:53] LABS: BASO % 0.5 % (0.0-2.0); EOS # 0.3 K/mm3 (0.0-0.7); EOS % 6.1 % (0.0-4.0); GRAN # 3.1 K/mm3 (1.4-6.5); LYMPH # 1.8 K/mm3 (1.2-3.4); LYMPH % 31.6 % (20.0-51.0); MEAN CELL VOLUME 104 fl (80.0-100.0); MEAN CORPUSCULAR HGB CONC 31 g/dl (33.0-37.0); MEAN PLATELET VOLUME 9.8 fl (7.4-10.4); MONO # 0.3 K/mm3 (0.1-0.6); MONO % 5.9 % (1.7-9.3); RED BLOOD COUNT 1.84 M/mm3 (4.10-5.30); REDCELL DISTRIBUTION WIDTH-CV 16.2 % (11.5-14.5)
[2021-11-14 07:57] LABS: HEMATOCRIT 19.1 % (37.0-47.0); MEAN CORPUSCULAR HEMOGLOBIN 32 pg (27-31)
[2021-11-14 07:59] LABS: HEMOGLOBIN 5.9 g/dl (12.5-16.0); PLATELET COUNT 248 K/mm3 (130-400)
[2021-11-14 08:46] LABS: RETIC # 0.09 M/mm3 (0.02-0.16); RETIC % 4.8 % (0.5-3.52)
--- NOTE | 2021-11-14 10:11 | NUR ---
Air Conditioning Engineer faxed updates to [facility] and [facility].
--- NOTE | 2021-11-14 14:04 | NUR ---
SW also faxed updates to [facility].
[2021-11-14 16:30] LABS: HEMATOCRIT 23.9 % (37.0-47.0); HEMOGLOBIN 7.6 g/dl (12.5-16.0)
--- NOTE | 2021-11-14 18:26 | NUR ---
Pt alert and oriented, resting in bed currently, but up to ambulate in room from bed to chair today. Reports chronic back pain. Administered prn tylenol x2 today and frequently repositioned. Shift assessment performed. Medications administered per orders and education provided. Pt recieved 1 unit of PRBC's today for a hgb of 5.9. Hgb increased to 7.6. Orders in for another Hgb check at 2200. No adverse rxns' and VS remained stable. VS currently stable ,BP runs elevated. Pt tolerating clear liquid diet. Coffey in place. Adequate output throughout day. No BM's today. Will notify rn night on orders for stool occult and c-diff tests. Pt reported not sleeping well last night, talked to provider and had prn melatonin ordered. Pt reports no questions at this time. No concerns, will continue to monitor.
--- NOTE | 2021-11-14 19:41 | NUR ---
RECEIVED CHANGE OF SHIFT REPORT FROM DAY SHIFT RN.
--- NOTE | 2021-11-14 22:00 | NUR ---
PATIENT REQUESTING TO HAVE LIDO PATCH PLACED ON AT HS, "MY PAIN IS WORSE AT NIGHT" AND HAVE LIDO PATCH TAKEN OFF IN AM.
[2021-11-14 22:19] LABS: HEMOGLOBIN 7.5 g/dl (12.5-16.0)
[2021-11-15 04:38] VITALS: BP 150/71; PULSE 83; TEMP 98.2
[2021-11-15 06:18] LABS: HEMOGLOBIN 7.7 g/dl (12.5-16.0); MEAN CELL VOLUME 105 fl (80.0-100.0); MEAN CORPUSCULAR HEMOGLOBIN 32 pg (27-31); MEAN CORPUSCULAR HGB CONC 31 g/dl (33.0-37.0); MEAN PLATELET VOLUME 9.7 fl (7.4-10.4); PLATELET COUNT 239 K/mm3 (130-400); RED BLOOD COUNT 2.39 M/mm3 (4.10-5.30); REDCELL DISTRIBUTION WIDTH-CV 17.9 % (11.5-14.5)
[2021-11-15 06:39] LABS: CALCIUM 8.1 mg/dL (8.4-10.2); CREATININE, serum 2.38 mg/dL (0.57-1.11); POTASSIUM 4.1 mmol/L (3.5-4.5)
--- NOTE | 2021-11-15 07:03 | NUR ---
Change of shift report given to day shift RNElisabeth.
[2021-11-15 07:31] LABS: EOSINOPHIL 2 % (0-4); LYMPHOCYTE 40 % (20.0-51.0); NEUTROPHILS 56 % (42.0-75.2)
[2021-11-15 07:32] LABS: OVALOCYTES 1+; SCHISTOCYTES 1+
[2021-11-15 07:34] VITALS: BP 159/81; PULSE 85; TEMP 97.6
--- NOTE | 2021-11-15 11:46 | NUR ---
The patient is agreeable to an EGD/colonscopy now. This may be done in a day or two. Juan Carlos, at [facility], reports that they will likely not have a bed available. Wu, at [facility], states that they can accept the patient; pending insurance auth. SW to update the patient's .
[2021-11-15 11:49] VITALS: BP 171/82; PULSE 91; TEMP 97.3
--- NOTE | 2021-11-15 11:51 | NUR ---
NURA updated the patient's , Lionel. Lionel is agreeable with the patient going to [facility] upon discharge.
--- NOTE | 2021-11-15 12:15 | NUR ---
Pt alert and oriented, resting in bed currently. Pt was up to walk with PT and had a shower with OT today. Pt reported significant back pain this afternoon that was not relieved by repositioning, a heating pad, or prn tylenol. Administered prn tramadol and will reassess pain. Shift assessment performed. Medications administered per orders and education provided. Pt's hgb was a 7.7 this morning, up from a 5.9 yesterday. Pt did have one formed, black BM today. A stool occult was collected and is pending. Lung sounds are clear. No significant skin issues noted. VS are stable. Pt is on room air. Pt has been up with stanby assistance today and tolerated well. Pt is alert and oriented, but is forgetful and tends to repeat many of the same questions. No new concerns, will continue to monitor.
[2021-11-15 15:27] VITALS: BP 161/84; PULSE 86; TEMP 98.2
[2021-11-15 17:46] VITALS: BP 188/83; PULSE 89
--- NOTE | 2021-11-15 19:21 | NUR ---
No adverse events throughout the shift. Pt remains alert and oriented. Reports concern about her plan of care in regards to a possible EGD or colonoscopy. Pt reported back pain that was relieved by tramadol prn. Frequently repositioned pt as needed. Pt was up to ambulate with PT/OT today and ambulated from bed to chair with staff. Pt continues to tolerate clear liquid diet. Pt had one formed black stool today. Stool occult was collected. VS stable. Orthostatics were completed. Pt reports no new questions at this time. No new concerns.
[2021-11-15 20:10] VITALS: BP 171/84; PULSE 85; TEMP 97.6
[2021-11-16 00:02] VITALS: BP 163/89; PULSE 86; TEMP 97.5
--- NOTE | 2021-11-16 02:25 | NUR ---
ASSESSMENT COMPLETE FOR THIS SHIFT. PT RESTING IN BED WATCHING TV. PT COMPLAINED OF BACK PAIN. PT GIVEN TYLONEL, THEN A COUPLE OF HOURS LATER, TRAMADOL, FOR BACK PAIN. PT DENIED PALPITATIONS, N,V,D, SOB OR DIZZINESS. PT EXPRESSED NO OTHER NEEDS AT THIS TIME. CALL LIGHT WITHIN REACH.
[2021-11-16 04:50] VITALS: BP 160/75; PULSE 85; TEMP 98.1
[2021-11-16 06:23] LABS: HEMATOCRIT 24.6 % (37.0-47.0); HEMOGLOBIN 8.1 g/dl (12.5-16.0); MEAN CELL VOLUME 98 fl (80.0-100.0); MEAN CORPUSCULAR HEMOGLOBIN 32 pg (27-31); MEAN CORPUSCULAR HGB CONC 33 g/dl (33.0-37.0); MEAN PLATELET VOLUME 9.3 fl (7.4-10.4); PLATELET COUNT 248 K/mm3 (130-400); RED BLOOD COUNT 2.51 M/mm3 (4.10-5.30); REDCELL DISTRIBUTION WIDTH-CV 17.3 % (11.5-14.5)
[2021-11-16 06:29] LABS: CALCIUM 8.2 mg/dL (8.4-10.2); CREATININE, serum 1.81 mg/dL (0.57-1.11); POTASSIUM 4.4 mmol/L (3.5-4.5)
[2021-11-16 07:00] LABS: BAND 4 % (0-10); EOSINOPHIL 4 % (0-4); LYMPHOCYTE 26 % (20.0-51.0); NEUTROPHILS 62 % (42.0-75.2)
[2021-11-16 07:01] LABS: ANISOCYTOSIS 1+; PLATELET ESTIMATE NORMAL (NORMAL)
[2021-11-16 07:18] VITALS: BP 172/85; PULSE 85; TEMP 97.4
[2021-11-16 11:20] VITALS: BP 156/92; PULSE 86; TEMP 97.9
--- NOTE | 2021-11-16 12:36 | NUR ---
Initial assessment: comfortable Alexia: Yazidi Situaiton: Hairspring Cutter visit during rounds Background: PT was resting Assessment: PT is comfortable Recommendation: Follow up as needed
--- NOTE | 2021-11-16 14:30 | NUR ---
NURA staffed with the PA. The patient is to have an EGD/colonoscopy tomorrow. If the results come back normal, the patient may be able to discharge after that or on Saturday. NURA notified and faxed updates to Wu at [facility]. NURA faxed the patient's records to [facility] for auth on SNF. Awaiting insurance response. NURA met with the patient and her , Lionel, to update. The patient states that going to [facility] is going to have to be a discussion between her and her . Lionel inquired if the patient can go home, since she is doing better. NURA informed the patient and Lionel that the patient is only walking 75 ft with therapy and they are noting that the patient is still weak and have impaired funtional mobility. PT is still recommending SNF. Lionel verbalized understanding. Lionel and the patient would like to talk about SNF some more and will have a decision for SW tomorrow. NURA informed Lionel that if he does decide to take the patient home, home health would be recommended. Lionel verbalized understanding. NURA presented and read the IM form outloud to Lionel. Lionel verbalized understanding and signed the form. NURA provided him with a copy. *Discharge plan: Tentatively [facility], pending insurance auth and the patient and 's decision*
[2021-11-16 15:52] VITALS: BP 152/90; PULSE 81; TEMP 98.5
[2021-11-16 20:00] VITALS: BP 134/85; PULSE 99; TEMP 97.8
[2021-11-16 22:07] LABS: HEMATOCRIT 27.4 % (37.0-47.0); HEMOGLOBIN 8.9 g/dl (12.5-16.0)
[2021-11-17] VITALS (14 sets, daily range): BP systolic 125–158; BP diastolic 67–92; PULSE 90–106; TEMP 97.3–98.4
--- NOTE | 2021-11-17 06:00 | NUR ---
ASSESSMENT COMPLETE FOR THIS SHIFT. PT ON THE BEDSIDE COMMODE WHEN I WALKED IN FOR ASSESSMENT. PT COMPLAINED OF BACK PAIN. PT GIVEN TRAMADOL FOR PAIN. PT FELT TRAMADOL AND HER PAIN PATCH WERE EFFECTIVE FOR HER PAIN. PT DENIED PALPITATIONS, N,V,D, SOB OR DIZZINESS. PT SUCCESSFULLY FINISHED HER BOWEL PREP. PT NPO AT MIDNIGHT. PT EXPRESSED NO OTHER NEEDS AT THIS TIME. CALL LIGHT WITHIN REACH.
[2021-11-17 06:51] LABS: HEMATOCRIT 25.9 % (37.0-47.0); HEMOGLOBIN 8.2 g/dl (12.5-16.0)
[2021-11-17 07:03] LABS: CALCIUM 8.2 mg/dL (8.4-10.2); CREATININE, serum 1.44 mg/dL (0.57-1.11); POTASSIUM 4.7 mmol/L (3.5-4.5)
--- NOTE | 2021-11-17 09:58 | NUR ---
PT PLEASANT, AOX4, REPORTS PAIN 4/10 IN BACK AT REST AND 8/10 WITH ACTIVITY. PT ASSESSMENT PERFORMED, MEDICATIONS GIVEN WITH SIP OF WATER, PT INFORMED EGD/COLON WOULD NOT BE UNTIL THE AFTERNOON PER DR. CHEW. PT REPORTS WATERY STOOL WITH "SMALL CHUNKS". EDUCATED TO CALL WHEN HAVING BM TO ASSESS. VITALS REVIEWED, LUNA DRAINING CLEAR YELLOW URINE, NO OTHER NEEDS
--- NOTE | 2021-11-17 11:20 | NUR ---
PT PLEASANT, REPORTS PAIN WHEN AMBULATING WITH WALKER, LR FOR PREOP FLUIDS ATTACHED TO PT, PT TAKEN FOR EGD/COLON
--- NOTE | 2021-11-17 12:35 | NUR ---
PT RETURNED FROM EGD/COLON. PT REQUESTING LUNA TO BE REMOVED. ORDER RECIEVED FROM CASTRO MONTOYA. PT ATTACHED TO POST OP VITALS. PT REPORTING INC PAIN IN BACK, TRAMADOL GIVEN. VITALS OBSERVED. NO OTHER NEEDS
--- NOTE | 2021-11-17 13:39 | NUR ---
DR. CHEW RECOMENDING A FULL LIQUID DIET AT THIS TIME. CASTRO MONTOYA OK WITH PLACING THIS VERBAL ORDER
--- NOTE | 2021-11-17 14:19 | NUR ---
The patient is to have her EGD/colonoscopy. She is to tentatively be able to discharge tomorrow, 11/18. [facility] reports that the patient's pays a private fee for her plan and her plan does not require auth. Saurav has approved 5 days for SNF, starting today. NURA notified Wu at [facility] and updated him on discharge date. Wu reports that they are able to accept the patient tomorrow. NURA met with the patient and her , Lionel, to update. Lionel states that he was able to talk to Wu at [facility] and they would like to pursue with the patient going to [facility] tomorrow. The patient is agreeable to the plan. *Discharge plan: [facility]*
--- NOTE | 2021-11-17 17:01 | NUR ---
PT PLEASANT, AOX4, REPORTS BACK PAIN INCREASING WITH AMBULATION, PT REPORTS BEING WILLING TO GO TO SNF AFTER TALKING WITH . PT TOLERATING FULL LIQUID DIET. NO OTHER NEEDS
[2021-11-17 19:34] LABS: HEMOGLOBIN 8.5 g/dl (12.5-16.0)
--- NOTE | 2021-11-18 02:29 | NUR ---
ASSESSMENT COMPLETE FOR THIS SHIFT. PT RESTING IN BED, BUT WANTED TO GO TO THE RESTROOM. I ASSISTED PT TO THE RESTROOM AND BACK TO BED. PT STATED UPON GETTING BACK IN BED, "I'M GETTING A GOOD AMOUNT OF PEE OUT, SINCE THEY TOOK MY LUNA OUT." PT COMPLAINED OF BACK PAIN AND REQUESTED TRAMADOL AND TWO TYLENOL. PT GIVEN TRAMADOL AND TYLENOL. PT FELT PAIN MEDICATIONS WERE EFFECTIVE. PT DENIED PALPITATIONS, SOB, N,V,D OR DIZZINESS. PT TALKED ABOUT GOING TO INTERMEDIATE TODAY (11/18). PT STATED, "MY THINKS I SHOULD GO, SO I GUESS THAT'S WHAT I WILL HAVE TO DO." PT EXPRESSED NO OTHER NEEDS AT THIS TIME. CALL LIGHT WITHIN REACH.
[2021-11-18 04:40] VITALS: BP 136/76; PULSE 94; TEMP 97.9
[2021-11-18 06:28] LABS: MEAN CELL VOLUME 99 fl (80.0-100.0); MEAN CORPUSCULAR HGB CONC 32 g/dl (33.0-37.0); MEAN PLATELET VOLUME 9.2 fl (7.4-10.4); PLATELET COUNT 251 K/mm3 (130-400); RED BLOOD COUNT 2.37 M/mm3 (4.10-5.30); REDCELL DISTRIBUTION WIDTH-CV 17.4 % (11.5-14.5)
[2021-11-18 06:31] LABS: HEMATOCRIT 23.5 % (37.0-47.0); HEMOGLOBIN 7.6 g/dl (12.5-16.0); MEAN CORPUSCULAR HEMOGLOBIN 32 pg (27-31)
[2021-11-18 06:40] LABS: CALCIUM 7.9 mg/dL (8.4-10.2); CREATININE, serum 1.32 mg/dL (0.57-1.11); MAGNESIUM 1.3 mg/dL (1.6-2.6); POTASSIUM 3.9 mmol/L (3.5-4.5)
[2021-11-18 07:36] VITALS: BP 144/78; PULSE 73; TEMP 97.6
[2021-11-18 07:42] LABS: EOSINOPHIL 4 % (0-4); LYMPHOCYTE 29 % (20.0-51.0); NEUTROPHILS 65 % (42.0-75.2)
[2021-11-18 07:43] LABS: ANISOCYTOSIS 1+; PLATELET ESTIMATE NORMAL (NORMAL)
--- NOTE | 2021-11-18 08:00 | NUR ---
Patient sitting up in bed, A&Ox4. VSS. IV CDI. Reports pain in lower back, pain medication given when requested. Call light within reach. Bed alarm on
[2021-11-18] MEDS ORDERED: LIPITOR 40MG TA40 MG PO (10:04)
[2021-11-18] MEDS ORDERED: PROTONIX 40MG T40 MG PO (11:00)
--- NOTE | 2021-11-18 12:17 | NUR ---
IV removed, tip intact. Patient assisted with getting dressed and personal belongings with the transportor. Call light within reach
--- NOTE | 2021-11-18 12:45 | NUR ---
[facility] transportor transfered the patient by wheelchair to awaiting vehicle. Report called to [facility]. No further needs expressed
[2021-11-18] MEDS ORDERED: NORCO 325 MG-51 TAB PO (14:28)
[2021-11-18] MEDS ORDERED: RESTORIL30 MG PO ×2 (14:51)
[2021-11-18] MEDS ORDERED: VALIUM 5MG T5 MG/TAB PO ×2 (14:51)
[2021-11-19] MEDS ORDERED: MELATONIN5 M1 SL (16:24)
== END 2021-11-18 12:45 | DRG 871 ==
LOC: COL.ER 04:03 → MEDICAL 06:23
PROVIDERS: Emergency Medicine; Internal Medicine; Internal Medicine Gastroenterology; Physician Assistant; ADMIT Family Medicine
PROC: 0HQ0XZZ Repair Scalp Skin, External Approach (ICD-10-PCS; principal; 2021-11-13)
PROC: 0DJD8ZZ Inspection of Lower Intestinal Tract, Via Natural or Artificial Opening Endoscopic (ICD-10-PCS; 2021-11-17)
PROC: 0W3P8ZZ Control Bleeding in Gastrointestinal Tract, Via Natural or Artificial Opening Endoscopic (ICD-10-PCS; 2021-11-17 13:45)
DX: A41.9 Sepsis, unspecified organism (principal); K31.82 Dieulafoy lesion (hemorrhagic) of stomach and duodenum; N17.9 Acute kidney failure, unspecified; N39.0 Urinary tract infection, site not specified; E87.2 Acidosis; K90.9 Intestinal malabsorption, unspecified; S01.01XA Laceration without foreign body of scalp, initial encounter; E78.5 Hyperlipidemia, unspecified; Z66 Do not resuscitate; F03.90 Unspecified dementia, unspecified severity, without behavioral disturbance, psychotic disturbance, mood disturbance, and anxiety; I12.9 Hypertensive chronic kidney disease with stage 1 through stage 4 chronic kidney disease, or unspecified chronic kidney disease; N18.9 Chronic kidney disease, unspecified; E11.22 Type 2 diabetes mellitus with diabetic chronic kidney disease; M10.9 Gout, unspecified; G89.29 Other chronic pain; E86.0 Dehydration; D64.9 Anemia, unspecified; G47.00 Insomnia, unspecified; M54.50 Low back pain, unspecified; K57.30 Diverticulosis of large intestine without perforation or abscess without bleeding; K64.9 Unspecified hemorrhoids; B96.20 Unspecified Escherichia coli [E. coli] as the cause of diseases classified elsewhere; R09.02 Hypoxemia; Z20.822 Contact with and (suspected) exposure to COVID-19; W18.30XA Fall on same level, unspecified, initial encounter; Y93.89 Activity, other specified; Y92.002 Bathroom of unspecified non-institutional (private) residence as the place of occurrence of the external cause; Z86.73 Personal history of transient ischemic attack (TIA), and cerebral infarction without residual deficits; Z79.84 Long term (current) use of oral hypoglycemic drugs; Z79.82 Long term (current) use of aspirin
CPT/HCPCS: 99222-AI; 99232-AI; 99233-AI; 99239; J0696; J1644; J1756; J2405; J2704; J2765; J7030; J7120; P9016

== ENCOUNTER → 2021-11-21 | Outpatient (REF) ==
[~2021-11-21] MED LIST changes: +ASPIRIN 81M81 MG/TA2 PO; +COZAAR100 MG PO; +LIPITOR 40MG TA40 MG PO; +MELATONIN5 M1 SL; +PROTONIX 40MG T40 MG PO
[2021-11-21 11:57] LABS: BASO % 0.5 % (0.0-2.0); EOS # 0.5 K/mm3 (0.0-0.7); EOS % 5.4 % (0.0-4.0); GRAN # 5.1 K/mm3 (1.4-6.5); GRAN % 61.3 % (42.2-75.2); LYMPH # 2.2 K/mm3 (1.2-3.4); MEAN CELL VOLUME 105 fl (80.0-100.0); MEAN CORPUSCULAR HGB CONC 31 g/dl (33.0-37.0); MEAN PLATELET VOLUME 10.1 fl (7.4-10.4); MONO # 0.4 K/mm3 (0.1-0.6); MONO % 5.1 % (1.7-9.3); PLATELET COUNT 273 K/mm3 (130-400); RED BLOOD COUNT 2.46 M/mm3 (4.10-5.30); REDCELL DISTRIBUTION WIDTH-CV 17.5 % (11.5-14.5)
[2021-11-21 12:11] LABS: CALCIUM 8.6 mg/dL (8.4-10.2); CREATININE, serum 1.32 mg/dL (0.57-1.11); POTASSIUM 4.3 mmol/L (3.5-4.5)
[2021-11-21 12:35] LABS: HEMATOCRIT 25.9 % (37.0-47.0); HEMOGLOBIN 7.9 g/dl (12.5-16.0); MEAN CORPUSCULAR HEMOGLOBIN 32 pg (27-31)
== END ==
LOC: ZLAB.STJ 11:48
PROVIDERS: Internal Medicine
DX: D50.0 Iron deficiency anemia secondary to blood loss (chronic) (principal)

== ENCOUNTER → 2021-12-06 | Outpatient (CLI) | payer MEDICARE | LOC: COL.RAD 11:17 | DX: S22.089A Unspecified fracture of T11-T12 vertebra, initial encounter for closed fracture (principal) ==

== ENCOUNTER 2022-02-02 10:30 | Outpatient (RCR) | payer MEDICARE | END 2022-02-04 | disposition still patient (30) | LOC: WSPT | DX: M48.54XD Collapsed vertebra, not elsewhere classified, thoracic region, subsequent encounter for fracture with routine healing (principal) ==

== ENCOUNTER 2022-02-19 14:15 | Outpatient (RCR) | payer MEDICARE ==
[2022-03-24] MEDS ORDERED: CEPHALEXIN500 M1 PO (23:11)
== END 2022-03-07 ==
LOC: WSPT
DX: Z29.8 Encounter for other specified prophylactic measures (principal); M48.54XA Collapsed vertebra, not elsewhere classified, thoracic region, initial encounter for fracture

== ENCOUNTER 2022-03-23 09:51 | Emergency (ER) | payer MEDICARE ==
[~2022-03-23] VITALS: Ht 165.1 cm; Wt 68.2 kg
[2022-03-23 10:14] VITALS: TEMP 97.6
[2022-03-23 11:04] LABS: BASO # 0.1 K/mm3 (0.0-0.2); BASO % 0.4 % (0.0-2.0); EOS % 0.1 % (0.0-4.0); GRAN # 12.6 K/mm3 (1.4-6.5); GRAN % 76.8 % (42.2-75.2); HEMOGLOBIN 11.7 g/dl (12.5-16.0); LYMPH # 2.7 K/mm3 (1.2-3.4); LYMPH % 16.7 % (20.0-51.0); MEAN CELL VOLUME 100 fl (80.0-100.0); MEAN CORPUSCULAR HEMOGLOBIN 33 pg (27-31); MEAN CORPUSCULAR HGB CONC 33 g/dl (33.0-37.0); MEAN PLATELET VOLUME 8.7 fl (7.4-10.4); MONO # 0.9 K/mm3 (0.1-0.6); MONO % 5.4 % (1.7-9.3); PLATELET COUNT 513 K/mm3 (130-400); REDCELL DISTRIBUTION WIDTH-CV 16.5 % (11.5-14.5)
[2022-03-23 11:05] LABS: HEMATOCRIT 35.9 % (37.0-47.0)
[2022-03-23 11:21] LABS: ALBUMIN 2.4 gm/dL (3.4-4.8); BILIRUBIN,TOTAL 0.6 mg/dL (0.2-1.2); CALCIUM 8.6 mg/dL (8.4-10.2); CREATININE, serum 2.28 mg/dL (0.57-1.11); MAGNESIUM 1.4 mg/dL (1.6-2.6); PHOSPHOROUS 3.5 mg/dL (2.3-4.7); POTASSIUM 4.2 mmol/L (3.5-4.5); TOTAL PROTEIN 6.6 gm/dL (6.2-8.1)
[2022-03-23 11:28] LABS: TROPONIN-I 0.022 ng/mL (0.00-0.033)
--- NOTE | 2022-03-23 11:44 | NUR ---
bench worker binding met with patient and spouse to discuss options as patient's care needs are increasing at home. Patient lives with her spouse and their daughter, Leatha. Spouse states that their daughter, Leatha, is helpful and the reason why they are able to manage at all at home. Patient is wheelchair bound at home and daughter and spouse help with transfers. Spouse states that they have had to call EMS to help lift patient from previous falls. Worker provided resource information for caramel cutter helper in the home and advised that [facility] not pay for in home services or snf jail care. Worker strongly urged spouse and patient to make an appointment with senior trial attorney to discuss division of assets and financial situation as snf care may be needed soon. Worker provided information on the cost of snf care. Home health was discussed, however, worker and patient did not feel there is "mobility rehab" to be achieved due to current health status of the patient. Worker provided information on usage of a bedside commode. Patient and spouse state they have one that is currently over their toilet. Worker collaborated with physician regarding the above information.
[2022-03-23 12:32] LABS: COLLECTION METHOD IN
[2022-03-23 12:39] LABS: URINE APPEARANCE Clear (CLEAR/HAZY); URINE BLOOD Negative (NEGATIVE); URINE COLOR Yellow (YELLOW); URINE GLUCOSE Negative (NEGATIVE); URINE KETONE TRACE (NEGATIVE); URINE NITRATE Negative (NEGATIVE); URINE PROTEIN(semi-quant) Negative (NEGATIVE); URINE UROBILINOGEN 0.2 E.U/dL (0.2-1.0)
[2022-03-23 13:15] LABS: SQUAMOUS EPITHELIAL None Seen /hpf (0-10); URINE BACTERIA Many /hpf (NONE SEEN); URINE RBC 0-2 /hpf (0-2); URINE WBC 0-2 /hpf (0-2)
[2022-03-23] MEDS ORDERED: ZITHROMAX Z PA250 MG PO (14:43)
[2022-03-23] MEDS ORDERED: DOXYCYCLINE HY100 MG PO (14:43)
[2022-03-23] MEDS ORDERED: MAG64 110 MG-181 ECT PO (15:36)
[2022-03-23 15:58] VITALS: BP 132/84; PULSE 108
[2022-03-24] MEDS ORDERED: CEPHALEXIN500 M1 PO (23:11)
== END 2022-03-23 15:58 | disposition home or self-care (01) ==
LOC: COL.ER 09:51
PROVIDERS: Emergency Medicine
DX: J18.9 Pneumonia, unspecified organism (principal); E83.42 Hypomagnesemia; R79.89 Other specified abnormal findings of blood chemistry; Z20.822 Contact with and (suspected) exposure to COVID-19
CPT/HCPCS: J7040

== ENCOUNTER → 2022-03-28 | Outpatient (CLI) | payer MEDICARE ==
[~2022-03-28] MED LIST changes: +CEPHALEXIN500 M1 PO; +DOXYCYCLINE HY100 MG PO; +MAG64 110 MG-181 ECT PO; +ZITHROMAX Z PA250 MG PO
== END ==
LOC: COL.RAD 13:07
DX: G31.9 Degenerative disease of nervous system, unspecified (principal); G93.89 Other specified disorders of brain